=== PATIENT | male | born 1940 | race Caucasian/White ===

== ENCOUNTER 2023-11-27 06:03 | Day surgery (SDC) | payer MEDICARE ==
[2023-11-27] MEDS ORDERED: Lactated Ringers 1,000 ML IV ONE ×2 (06:23→11:19)
[2023-11-27] MEDS: Lactated Ringers 1,000 ML IV SCH (06:26)
[2023-11-27] MEDS ORDERED: TYLENOL EXTRA STRENGTH 500 MG ONE (07:04)
[2023-11-27] MEDS ORDERED: Decadron 4 MG ONE ×2 (07:04→07:09)
[2023-11-27] MEDS ORDERED: TRANEXAMIC 1,000 MG/100ML-NACL 1,000 MG/100 ML PIGGYBACK IV ONE (07:04)
[2023-11-27] MEDS ORDERED: celeBREX 100 MG ONE (07:05)
[2023-11-27] MEDS: celeBREX 100 MG PO ONE (07:08)
[2023-11-27] MEDS: Decadron 4 MG PO ONE (07:08)
[2023-11-27] MEDS: VANCOMYCIN 1 GRAM/200 ML BAG 1 GM/200 ML PIGGYBACK IV SCH (07:10)
[2023-11-27] MEDS: TYLENOL EXTRA STRENGTH 500 MG PO ONE (07:11)
[2023-11-27] MEDS: TRANEXAMIC 1,000 MG/100ML-NACL 1,000 MG/100 ML PIGGYBACK IV SCH (07:18)
[2023-11-27 07:32] LABS: ABO TYPING O; Antibody Screen NEGATIVE (NEGATIVE); RH TYPING POSITIVE
[2023-11-27] MEDS ORDERED: Versed 2 MG/2 ML Injection ONE (08:00)
[2023-11-27] MEDS ORDERED: Xylocaine-Mpf 2% 5 Ml Vial ONE ×3 (08:00→08:39)
[2023-11-27] MEDS ORDERED: Marcaine 0.5%/Epinephrine 10 ML ONE (08:00)
[2023-11-27] MEDS ORDERED: ROCURONIUM BROMIDE IV ONE ×2 (08:38→08:39)
[2023-11-27] MEDS ORDERED: DIPRIVAN 200 MG/20 ML IV ONE (08:38)
[2023-11-27] MEDS ORDERED: SUBLIMAZE 100 MCG/2 ML ONE (08:38)
[2023-11-27] MEDS ORDERED: XYLOCAINE 1%/Epi 1:100000 MDV 20 ML ONE (08:39)
[2023-11-27] MEDS ORDERED: Amidate 20 MG/10 ML IV ONE (08:41)
[2023-11-27] MEDS ORDERED: PEROXIDE 3% ONE (08:41)
[2023-11-27] MEDS ORDERED: Zofran 4 MG/2 ML VIAL ONE (09:08)
[2023-11-27] MEDS ORDERED: TORAdol 30 mg Injection ONE (09:08)
[2023-11-27] MEDS ORDERED: BRIDION 200MG/2ML IV ONE (09:08)
[2023-11-27] MEDS ORDERED: Decadron 4 MG INJ ONE (09:08)
[2023-11-27] MEDS ORDERED: Ephedrine Sulfate 50 MG/ML ONE (10:04)
--- NOTE | 2023-11-27 12:22 | XRAY ---
Indication: Follow-up surgery. Comparison: August 20, 2023 AP and attempted scapular Y view right shoulder demonstrates interval arthroplasty with intact bipolar prosthesis/glenoid process screws. Soft tissue swelling/emphysema with cutaneous elmo attest to surgery. Elsewhere stable osteopenia, AC degenerative arthropathy, and multilevel degenerative spondylosis.
[2023-11-27 12:47] VITALS: O2SAT 96
[2023-11-27 16:02] VITALS: BP 151/65; PULSE 67; RESP 19; TEMP 97.9
--- NOTE | 2023-11-27 23:29 | OP ---
SURGERY DATE/TIME: 11/27/2023 2708 - [id number] PREOPERATIVE DIAGNOSIS: Right shoulder degenerative joint disease. POSTOPERATIVE DIAGNOSIS: Right shoulder degenerative joint disease. PROCEDURE: Right reverse shoulder arthroplasty. SURGEON: Sam Patel MD PHOTO EDITOR: Haily Black ANESTHESIA: General plus interscalene block. FINDINGS: Severe glenohumeral DJD with flattened humeral head. Rotator cuff was mainly intact. Biceps tendon was intact. INDICATION FOR PROCEDURE: The patient is an 83-year-old white male with painful right shoulder he wished to have replaced for pain relief. DESCRIPTION OF PROCEDURE AND FINDINGS: The patient was seen in the holding room. We identified the right shoulder as correct. This was initialed by me. He was taken to the OR where he had general anesthesia and interscalene block. He had 1000 mg vancomycin due to an allergy to cephalexin. He also had 1000 mg tranexamic acid IV. He was set up in the beach chair position at a 45-degree angle with a right-sided kidney rest. His left arm was on a padded stand. He had a wide strap keeping pressure off his supraorbital nerve. He had eye protection on. He had a wedge behind his calves keeping pressure off his heels. He had sterile prep and draping of the right upper extremity. Time out was performed by me. He had the incision pre-injected with 10 mL of 0.25% Marcaine with epinephrine using a deltopectoral skin incision. The incision was made approximately 10 cm in length. The cephalic vein was identified and retracted medially. A blunt dissection was done deep to the deltoid and then a large humeral head retractor was placed. The subscapularis was released off the insertion with a Bovie and the biceps tendon was identified, cut and tagged with #2 MaxBraid suture. The humerus was externally rotated while releasing the capsule off the inferior neck, avoiding the axillary nerve. The shoulder was dislocated anteriorly and then the starting point was found in the superior head just off the articular surface. The starting awl for the Rosendo comprehensive reverse shoulder was used. The starting awl went down the canal and then successful reaming was done in 1-mm increments to size 13. The cutting guide then was slid over the shaft of the reamer in 30 degrees of retroversion guided off the forearm with the guide rogelio. The neck cut was made at the articular junction with a saw and then the head was removed. Osteophytes were removed. The broaching was then done starting at a size 11, going up to a size 13 with good fit. The broach was removed. The retractors were placed around the glenoid at the 9 o'clock, 6 o'clock and 3 o'clock positions. The biceps stump was removed as was the labrum circumferentially. The center of the glenoid was marked with a Bovie going slightly superior due to inferior osteophytes seen on the CT scan. The guide pin was drilled with the baseplate guide with the pins at a superior angle and slight anteversion due to the posterior glenoid wear. The reaming was then done on top of this guide pin with the Desktone reamer, taking off about a depth of 4 mm of bone anteriorly. The irrigation was done and then the baseplate was slid over the guide pin and impacted. It was then anchored with a central screw. After drilling, the center screw was 6.5 x 30 mm. Four screws were then placed peripherally, all being 4.75 mm locking screws with 2 anterior and superior screws being 35 mm, the posterior screw being 25 and the anterior screw being 15. The shoulder was irrigated again and the Glenosphere was locked on with the 2.5mm inferior offset and verified to be locked securely with an osteotome. The trial 0 tray was put on with a 0 cut. This was reducible with good tension and good range of motion and stability. The broach was then removed. Canal thoroughly irrigated with pulse lavage and the 13 mini shoulder prosthesis was impacted being about 2 mm proud. The trial reduction was done again with the 0 baseplate and tray being appropriate. Therefore, the tray was assembled and placed into a clean trunnion and impacted with a good secure fit. This was reduced with the same range of motion and good stability as before. The shoulder was irrigated. It should be mentioned also that the Glenosphere size was 36 mm, and this had been impacted after putting on the baseplate. The shoulder was thoroughly irrigated. The biceps was tenodesed to the soft tissue anteriorly with the suture and then the subcutaneous tissue was closed with 2-0 Vicryl, the skin with elmo. Sterile dressing was applied and patient was placed in a sling with slight abduction pad. ESTIMATED BLOOD LOSS: 75 mL. FLUIDS: Per the Anesthesia record. SPECIMENS: None. DRAINS: None. COMPLICATIONS: None. Plan is for patient to do gentle active and passive range of motion. Avoid extreme internal rotation. He will be discharged home today if comfortable. If so, he will go home on Percocet 5 mg 1 q.4 h. p.r.n., dispense #28. He will be seen back in 8 to 10 days for staple removal. He will remove the dressing in 5 days and shower then. He will start physical therapy outpatient next week as this week is a holiday.
== END 2023-11-27 16:05 | disposition home or self-care (01) ==
LOC: SDC 06:03 → MED SURG 12:35 → SDC 16:05
PROVIDERS: ATTEND Orthopaedic Surgery
DX: M19.011 Primary osteoarthritis, right shoulder (principal); M25.511 Pain in right shoulder; E11.9 Type 2 diabetes mellitus without complications
CPT/HCPCS: 23472; 36415; 73030; 82947; 86850; 86900; 86901; 97161; 97165; 97530; C1713; C1776; J1100; J1885; J2250; J2405; J2704; J3010; A9270-GY; J3370

== ENCOUNTER 2023-11-28 12:22 | Emergency (ER) | payer MEDICARE ==
[2023-11-28 12:48] VITALS: PULSE 62; TEMP 98.6
--- NOTE | 2023-11-28 13:48 | ERPHSYRPT ---
- History of Present Illness Time Seen by Provider: 11/28/23 12:36 Source: patient, family Exam Limitations: no limitations Patient Subjective Stated Complaint: Pt had a right shoulder replacement done here at [facility] yesterday and he was placing ice on it during the night and he states that it "cracked" "pop" and it hurts Triage Nursing Assessment: Pt brought to the ER by his , hypertensive, rates pain as 8/10, incision is covered with a bandage with silver, bruising to the underpart and lower arm, bounding pulse in right arm, rest of skin is n/w/d, doesn't appear to be in any distress Physician History: 83-year-old male with right shoulder replacement postop day [address] Patel here at [facility] presented in the ER with complaint of increase in the pain and bruising/swelling of arm started after he was putting ice and felt a popping sensation. Patient reports tightness in the arm with bruising. No numbness or tingling in the fingers/wrist/forearm. No difficulty movements of the fingers. Denies any fall or trauma. Patient has taken only 2 Oxy since yesterday. Allergies/Adverse Reactions: morphine Allergy (Unknown, Verified 11/28/23 12:49) amoxicillin Allergy (Verified 11/28/23 12:49) Rash adhesive tape Adverse Reaction (Unknown, Verified 11/28/23 12:49) Home Medications: Ezetimibe 10 mg [Zetia 10 MG] 10 mg PO DAILY 09/17/23 [History] Finasteride 5 mg [Proscar 5 MG] 5 mg PO DAILY 09/17/23 [History] Glipizide [Glipizide ER] 5 mg PO BID 09/17/23 [History] Lisinopril 5 mg [Zestril 5 MG] 5 mg PO DAILY 09/17/23 [History] Pravastatin Sodium 40 mg PO DAILY 09/17/23 [History] Tamsulosin HCl 0.4 mg [Flomax 0.4 MG] 1 tab PO DAILY 09/17/23 [History] Esomeprazole Magnesium 40 mg PO DAILY 11/28/23 [History] Hx Influenza Vaccination/Date Given: Yes Hx Pneumococcal Vaccination/Date Given: Yes Travel Risk - International Travel Have you traveled outside of the country in past 3 weeks: No - Emerging Infectious Disease Are you exhibiting symptoms associated with any current EIDs: No - Review of Systems Constitutional: No Symptoms Ears, Nose, & Throat: No Symptoms Respiratory: No Symptoms Cardiac: No Symptoms Abdominal/Gastrointestinal: No Symptoms Musculoskeletal: Joint Pain, Joint Swelling Skin: No Symptoms Neurological: No Symptoms - Past Medical History Pertinent Past Medical History: Yes Neurological History: No Pertinent History ENT History: Cataracts Cardiac History: High Cholesterol, Hypertension Respiratory History: No Pertinent History Endocrine Medical History: Diabetes Type II Musculoskeletal History: Arthritis GI Medical History: No Pertinent History History: No Pertinent History Male Reproductive Disorders: Prostate Problems Other Medical History: PSH: APPENDIX AND GALLBLADDER REMOVED, CERVICAL FUSION (POOR EXPERIENCE WITH CERVICAL NECK MANIPULATION WITH A CHIROPRACTOR). - Past Surgical History Past Surgical History: Yes Neuro Surgical History: No Pertinent History Cardiac: No Pertinent History Respiratory: No Pertinent History Gastrointestinal: Appendectomy, Cholecystectomy Genitourinary: No Pertinent History Musculoskeletal: Joint Replacement, Other Male Surgical History: No Pertinent History Other Surgical History: right shoulder replacement - Social History Smoking Status: Former smoker How long have you smoked: 18 years Exposure to second hand smoke: No Drug Use: none - Social Determinants of Health Will the patient participate in the screening: Yes Do you worry about a steady place to live?: No Do you have any problems with any of the following?: No known problems In the past 12 months,have you had to go without utilities?: No Transportation Issues: No Has anyone in your support network made you feel unsafe?: No Have you or anyone in your house had to go without enough: No - Nursing Vital Signs Nursing Vital Signs: Initial Vital Signs Temperature 98.6 F 11/28/23 12:35 Pulse Rate 62 11/28/23 12:35 Blood Pressure 140/68 11/28/23 12:35 O2 Sat by Pulse Oximetry 100 11/28/23 12:35 Pain Scale Pain Intensity 8 - Physical Exam General Appearance: no apparent distress, alert Eyes, Ears, Nose, Throat Exam: normal ENT inspection Neck Exam: normal inspection, full range of motion Cardiovascular/Respiratory Exam: normal breath sounds, regular rate/rhythm Abdominal Exam: non-tender, soft Shoulder Exam: bone tenderness, ecchymosis, limited ROM (Diffuse tenderness of right shoulder with dressing well applied. Bruising/ecchymosis along the medial aspect of joint/axillae/arm. Mild tenderness. Distal neurovascular intact), pain, soft tissue tenderness, swelling Elbow/Forearm Exam: normal inspection, non-tender, no evidence of injury, normal ROM Wrist Exam: normal inspection, non-tender, no evidence of injury, normal ROM Hand Exam: normal inspection, non-tender, no evidence of injury, normal ROM Neuro/Tendon Exam: normal sensation, normal motor functions Mental Status Exam: alert, oriented x 3, cooperative Skin Exam: normal color SpO2 Interpretation: normal SpO2: 100 O2 Delivery: Room Air Ordered Tests: Active Orders 24 hr Category Date Time Status SHOULDER Stat Exams 11/28/23 12:56 Taken - Progress Progress Note: 11/28/23 13:49 83-year-old is evaluated in the ER for increasing shoulder pain and swelling after replacement yesterday with feeling of a popping sensation in the shoulder. Patient has intact distal neurovascular. Compartments are soft. No signs of compartment syndrome. Obtain x-rays which showed small tubercular fracture on x-rays reviewed by me, official report is pending. I have shared the x-rays with Dr. Patel who has also seen and recommended surgical fixation. Discussed with patient about observation admission versus going home, patient is not in excessive pain and given oral Percocet in here and does have pain medications at home. He is advised to keep n.p.o. after midnight and surgery will be scheduled in the morning. Discussed signs symptoms of worsening needing return to ER which patient/ seem understanding. Stable for discharge. Counseled pt/family regarding: diagnosis, need for follow-up, rad results Medical Desision Making - Discussion of managment Care discussed with:: specialist ([facility]) Reviewed:: Test results Agreed on:: Treatment plan, need for follow-up Will see patient: in hospital - Diagnostic Testing Diagnostic test were ordered, analyzed, and reviewed by me: Yes Radiological Interpretation: Interpreted by me, Reviewed by me - Risk of complications The pt has a mod risk of morbidity or mortality based on: Need for major surgery in otherwise healthy patient - Departure Departure Disposition: Home Clinical Impression: Shoulder fracture, right Condition: Stable Critical Care Time: No Referrals: DENNIS MILNER [Primary Care Provider] - Follow up with PCP 1 day Instructions: Shoulder Fracture (DC) Additional Instructions: Follow-up with orthopedic surgery for reevaluation and surgical fixation tomorrow morning as recommended. Do not eat or drink anything after midnight. Return to ER for intractable pain, swelling, difficulty movements at the wrist fingers, numbness or tingling/weakness in the fingers. Continue with intermittent ice application and pain medications which you have at home.
[2023-11-28] MEDS: PERCOCET TABLET 5/325MG PO ONE (13:58)
[2023-11-28] MEDS ORDERED: PERCOCET TABLET 5/325MG ONE (13:58)
[2023-11-28 14:02] VITALS: BP 143/64; O2SAT 97
--- NOTE | 2023-11-28 19:11 | XRAY ---
Indication: Pain. Comparison: One day earlier. 3 view right shoulder demonstrates grossly stable bipolar shoulder prosthesis/glenoid process screws and postsurgical soft tissue swelling/emphysema with cutaneous elmo. Elsewhere stable osteopenia, AC degenerative changes, and multilevel cervicothoracic degenerative spondylosis. No new bony, articular, or soft tissue abnormalities.
== END 2023-11-28 14:07 | disposition home or self-care (01) ==
LOC: ED 12:22
DX: S42.251A Displaced fracture of greater tuberosity of right humerus, initial encounter for closed fracture (principal); M97.31XA Periprosthetic fracture around internal prosthetic right shoulder joint, initial encounter; E78.5 Hyperlipidemia, unspecified; I10 Essential (primary) hypertension; E11.9 Type 2 diabetes mellitus without complications; Z79.891 Long term (current) use of opiate analgesic; Z79.84 Long term (current) use of oral hypoglycemic drugs; Z79.899 Other long term (current) drug therapy
CPT/HCPCS: 73030; 99283; A9270-GY

== ENCOUNTER 2023-11-29 07:49 | Day surgery (SDC) | payer MEDICARE ==
[2023-11-29] MEDS ORDERED: MARCAINE 0.25% PF/ EPI 1:200,000 IJ ONE (07:50)
--- NOTE | 2023-11-29 08:24 | PCM.HP ---
History of Present Illness - Chief Complaint Chief Complaint: Right shoulder pain status post RSA Date: 11/29/23 History of Present Illness: is a 83 year old maleHe underwent a right reverse shoulder arthroplasty by me on November 27, 2023. He was at home yesterday when he felt a pop. He came back to emergency room and was found to have a mildly displaced greater tuberosity fracture around his reverse shoulder prosthesisPatient's pain is moderate to severe now. Has some numbness.He does have constipation but is taking DulcolaxPatient has no chest pain shortness of breath fevers or chills.. Medications & Allergies Home Medications: Home Medication List Ezetimibe 10 mg [Zetia 10 MG] 10 mg PO DAILY 09/17/23 [History Confirmed 11/28/23] Finasteride 5 mg [Proscar 5 MG] 5 mg PO DAILY 09/17/23 [History Confirmed 11/28/23] Glipizide [Glipizide ER] 5 mg PO BID 09/17/23 [History Confirmed 11/28/23] Lisinopril 5 mg [Zestril 5 MG] 5 mg PO DAILY 09/17/23 [History Confirmed 11/28/23] Pravastatin Sodium 40 mg PO DAILY 09/17/23 [History Confirmed 11/28/23] Tamsulosin HCl 0.4 mg [Flomax 0.4 MG] 1 tab PO DAILY 09/17/23 [History Confirmed 11/28/23] Doxycycline Hyclate 100 mg [Vibramycin 100 MG] 100 mg PO BID 3 Days #6 tab 11/27/23 [Rx Confirmed 11/28/23] Oxycodone HCl/Acetaminophen [Percocet 5-325 mg Tablet] 1 each PO Q4H PRN PRN 7 Days #28 tablet MDD 6 11/27/23 [Rx Confirmed 11/28/23] Esomeprazole Magnesium 40 mg PO DAILY 11/28/23 [History Confirmed 11/28/23] Allergies/Adverse Reactions: Allergies Allergy/AdvReac Type Severity Reaction Status Date / Time morphine Allergy Unknown Verified 11/28/23 12:49 amoxicillin Allergy Rash Verified 11/28/23 12:49 adhesive tape AdvReac Unknown Verified 11/28/23 12:49 - Past Medical History Past Medical History: Yes Neurological History: No Pertinent History ENT History: Cataracts Cardiac History: High Cholesterol, Hypertension Respiratory History: No Pertinent History Endocrine Medical History: Diabetes Type II Musculoskelatal History: Arthritis GI Medical History: No Pertinent History History: No Pertinent History Male Reproductive Disorders: Prostate Problems Comment: PSH: APPENDIX AND GALLBLADDER REMOVED, CERVICAL FUSION (POOR EXPERIENCE WITH CERVICAL NECK MANIPULATION WITH A CHIROPRACTOR). - Past Surgical History Past Surgical History: Yes Neuro Surgical History: No Pertinent History Cardiac History: No Pertinent History Respiratory Surgery: No Pertinent History GI Surgical History: Appendectomy, Cholecystectomy Genitourinary Surgical Hx: No Pertinent History Musculskeletal Surgical Hx: Joint Replacement, Other Male Surgical History: No Pertinent History Other Surgical History: right shoulder replacement - Social History Smoking Status: Former smoker How long have you smoked: 18 years Exposure to second hand smoke: No Alcohol: None Drug Use: none - Social Determinants of Health Will the patient participate in the screening: Yes Do you worry about a steady place to live?: No In the past 12 months,have you had to go without utilities?: No Have you or anyone in your house had to go without enough: No Transportation Issues: No Has anyone in your support network made you feel unsafe?: No - Physical Exam Additional Findings: 11/29/23 08:21 Pleasant male, no pain distress, alert and orient x 3 normal height and weight Heart regular rate rhythm Abdomen soft nontender positive bowel sounds Lungs clear bilaterally Right shoulder dressing still intact. Moving fingers well with 5/5 radial median and ulnar nerve function. Good sensation radial median ulnar nerve distribution. 2+ radial pulse X-rays of right shoulder from yesterday showed intactReverse shoulder arthroplasty with a 5 mm superiorly displaced greater tuberosity fractureWith osteoporotic appearance to the greater tuberosity Results - Radiology Impressions Radiology Exams & Impressions: Radiology Procedures Category Date Time Status FLUOROSCOPY UP TO 1 HR Routine Exams 11/29/23 07:50 Ordered SHOULDER Routine Exams 11/29/23 07:50 Ordered Assessment/Plan (1) Fracture of greater tuberosity of right humerus Current Visit: Yes Status: Acute Assessment & Plan: Explained to patient that this should be fixed to restore his rotator cuff function.Movable of the prosthesis then replacement of it.He understands the risk. Patient understands the risk include bleeding, infection, damage to nerves or blood vessels, nonunion, malunion, possible need for further surgery and the risk of medical or anesthetic complications including the risk of . Patient wishes to proceed with surgery.Will try to do this with general and nerve block and sent home today if possible .Patient will use enemas and stool softener and MiraLAX powder and the Dulcolax to try to get his bowel movement Code(s): S42.251A - DISP FX OF GREATER TUBEROSITY OF RIGHT HUMERUS, INIT
[2023-11-29] MEDS ORDERED: celeBREX 100 MG PO ONE (09:22)
[2023-11-29] MEDS ORDERED: Xylocaine-Mpf 2% 5 Ml Vial ONE (09:25)
[2023-11-29] MEDS ORDERED: Marcaine 0.5%/Epinephrine 10 ML ONE (09:25)
[2023-11-29] MEDS ORDERED: Zofran 4 MG/2 ML VIAL ONE (09:29)
[2023-11-29] MEDS ORDERED: BRIDION 200MG/2ML IV ONE (09:29)
[2023-11-29] MEDS ORDERED: SUBLIMAZE 100 MCG/2 ML ONE (09:29)
[2023-11-29] MEDS ORDERED: Versed 2 MG/2 ML Injection ONE (09:29)
[2023-11-29] MEDS ORDERED: DIPRIVAN 200 MG/20 ML IV ONE (09:29)
[2023-11-29] MEDS ORDERED: ROCURONIUM BROMIDE IV ONE (09:29)
[2023-11-29] MEDS: NEURONTIN PO ONE (09:32)
[2023-11-29] MEDS: Decadron 4 MG PO ONE (09:33)
[2023-11-29] MEDS: TYLENOL EXTRA STRENGTH 500 MG PO ONE (09:35)
[2023-11-29] MEDS: Lactated Ringers 1,000 ML IV SCH (09:36)
[2023-11-29] MEDS: VANCOMYCIN 1 GRAM/200 ML BAG 1 GM/200 ML PIGGYBACK IV ONE (09:37)
[2023-11-29 09:52] VITALS: RESP 16
[2023-11-29] MEDS ORDERED: Sodium Chloride 0.9% 1000 ML 1,000 ML ONE (10:02)
[2023-11-29] MEDS ORDERED: PHENYLEPHRINE HCL ONE (10:58)
[2023-11-29] MEDS ORDERED: Lactated Ringers 1,000 ML IV ONE (11:35)
[2023-11-29 12:37] VITALS: TEMP 98.9
[2023-11-29 12:55] VITALS: BP 138/67; PULSE 62; O2SAT 94
--- NOTE | 2023-12-01 11:42 | OP ---
SURGERY DATE/TIME: 11/29/2023 7886 - [id number] DIAGNOSIS: Right greater tuberosity fracture with reverse shoulder prosthesis. PROCEDURE: Open reduction and internal fixation right greater tuberosity fracture. SURGEON: Sam Patel MD. ANESTHESIA: General with interscalene block by Pollo. FINDINGS: A displaced greater tuberosity fracture with about a 1 cm superior posterior displacement. ESTIMATED BLOOD LOSS: Zero. FLUIDS: Per the anesthesia record. SPECIMENS: None. DRAINS: None. COMPLICATIONS: None. INDICATIONS: Patient is an 83-year-old white male who had a right reverse shoulder prosthesis by me for arthritis done 2 days ago. Postop day 1, he felt a pop in his shoulder and came to the emergency room with x-rays showing a greater tuberosity fracture. It was felt this should be fixed to restore rotator cuff function. DESCRIPTION OF PROCEDURE AND FINDINGS: Patient was seen in the holding room. We identified the right shoulder as correct. This was initialed by me. He had 1000 mg of vancomycin preoperative. He was taken to the OR where he had general anesthesia. He had already had the nerve block done. He was positioned in the beach chair at about a 30-degree angle and elevated his left arm across his belly. His calves were protected with a wedge pillow and pillows under his heels. He had a kidney rest on the right side. Had sterile prepping and draping of his right upper extremity. This had been prepped with hydrogen peroxide and with Hibiclens. Anitra were removed and the wound was painted with Betadine. The time-out was performed. The wound was spread apart with hemostats and the sutures were cut. The shoulder was still reduced. The prosthesis was dislocated and then the cup was removed from the stem. The stem was then disimpacted. The canal and wound were thoroughly irrigated with diluted Betadine solution with pulsed lavage using 1 liter, then irrigating this out with another liter of saline. The greater tuberosity was tagged with a MaxBraid suture to help with retraction. The 2 drill holes were drilled with 2 mm drill, one directly in line with the greater tuberosity and one in the bicipital groove. Then, 2.3 mm FiberTapes from [employer] were then passed through this in a mattress-type fashion through the anterior hole and out the posterior hole, placing [address] and then placing 1 tape through the anterior hole only. The prosthesis then re-impacted with good stability. No fracture seen. The cup was re-impacted onto the stem and the shoulder was reduced. The posterior suture was tied first, compressing the greater tuberosity down to the bony bed. This was tied, and the middle suture was tied, then the anterior suture was tied to prevent posterior translation. This shoulder appeared stable. It should be mentioned that the first suture had been placed through the bone and rotator cuff, the second one was placed in a [id number] fashion through the cuff, and the third suture had been placed in a [id number] fashion through the rotator cuff and bone. The shoulder was felt to be stable. Wound was irrigated again with pulsed saline and then the subcutaneous tissue was closed with 2-0 Vicryl and the skin with anitra. Sterile dressings were applied. Patient was placed back in a sling. The plan is for the patient to do pendulum exercises. He will keep the wound dry for 5 days and then may shower. We will see him back in about 10 to 12 days for staple removal and then I will see him back when I am back here in 3 weeks. He already has pain medicine. He will take stool softeners that he has at home and he will take Doxycycline, which I will send in for him for 3 days.
== END 2023-11-29 13:22 | disposition home or self-care (01) ==
LOC: SDC 07:49 → LAB 07:49 → SDC 13:22
PROVIDERS: ATTEND Orthopaedic Surgery
DX: S42.251A Displaced fracture of greater tuberosity of right humerus, initial encounter for closed fracture (principal); E11.9 Type 2 diabetes mellitus without complications
CPT/HCPCS: 23670; 76937; 82947; C1713; J2250; J2371; J2405; J2704; J3010; A9270-GY; J3370

== ENCOUNTER 2023-12-01 11:16 | Emergency (ER) | payer MEDICARE ==
[2023-12-01] MEDS ORDERED: CITROMA 296 ML ONE (11:31)
[2023-12-01] MEDS: CITROMA 296 ML PO ONE (11:32)
--- NOTE | 2023-12-01 11:37 | ERPHSYRPT ---
- History of Present Illness Time Seen by Provider: 12/01/23 11:32 Source: patient, family Exam Limitations: no limitations Patient Subjective Stated Complaint: Pt states "I have swelling in my lower arm and I have not had a bowel movement since saturday." Triage Nursing Assessment: Pt presented alert and oriented X 3, skin wpd. PT ambulates with an upright steady gait, able to speak in clear full sentences. Pt right lower arm swollen, good pulse noted, CSM noted. PT had full shoulder replaced and arm is in sling. Pt also constipated Physician History: Pt states "I have swelling in my lower arm and I have not had a bowel movement since saturday." Mr Jiménez is 83-year-old male recently underwent surgery for right shoulder repair last Saturday since Saturday he started having a more swelling around his right arm and shoulder and started having more pain so he called orthopedic surgeon who advised him to come to the emergency room to get it checked out for x-ray. Patient is also complaining of constipation due to the pain medication he has been taking. Patient denies any other symptoms. Occurred: yesterday Severity of Pain-Max: mild Severity of Pain-Current: moderate Extremities Pain Location: shoulder: right Modifying Factors: Improves With: nothing Associated Symptoms: none Allergies/Adverse Reactions: morphine Allergy (Unknown, Verified 11/28/23 12:49) amoxicillin Allergy (Verified 11/28/23 12:49) Rash adhesive tape Adverse Reaction (Unknown, Verified 11/28/23 12:49) Home Medications: Ezetimibe 10 mg [Zetia 10 MG] 10 mg PO DAILY 09/17/23 [History] Finasteride 5 mg [Proscar 5 MG] 5 mg PO DAILY 09/17/23 [History] Glipizide [Glipizide ER] 5 mg PO BID 09/17/23 [History] Lisinopril 5 mg [Zestril 5 MG] 5 mg PO DAILY 09/17/23 [History] Pravastatin Sodium 40 mg PO DAILY 09/17/23 [History] Tamsulosin HCl 0.4 mg [Flomax 0.4 MG] 1 tab PO DAILY 09/17/23 [History] Esomeprazole Magnesium 40 mg PO DAILY 11/28/23 [History] Hx Tetanus, Diphtheria Vaccination/Date Given: No Hx Influenza Vaccination/Date Given: No Hx Pneumococcal Vaccination/Date Given: No Immunizations Up to Date: No Travel Risk - International Travel Have you traveled outside of the country in past 3 weeks: No - Emerging Infectious Disease Are you exhibiting symptoms associated with any current EIDs: No - Review of Systems Constitutional: No Symptoms Eyes: No Symptoms Ears, Nose, & Throat: No Symptoms Respiratory: No Symptoms Cardiac: No Symptoms Abdominal/Gastrointestinal: Constipation Genitourinary Symptoms: No Symptoms Musculoskeletal: Joint Pain, Joint Swelling (right shoulder) Skin: No Symptoms Neurological: No Symptoms Endocrine: No Symptoms Hematologic/Lymphatic: No Symptoms Immunological/Allergic: No Symptoms - Past Medical History Pertinent Past Medical History: Yes Neurological History: No Pertinent History ENT History: Cataracts Cardiac History: High Cholesterol, Hypertension Respiratory History: No Pertinent History Endocrine Medical History: Diabetes Type II Musculoskeletal History: Arthritis GI Medical History: No Pertinent History History: No Pertinent History Male Reproductive Disorders: Prostate Problems Other Medical History: PSH: APPENDIX AND GALLBLADDER REMOVED, CERVICAL FUSION (POOR EXPERIENCE WITH CERVICAL NECK MANIPULATION WITH A CHIROPRACTOR). - Past Surgical History Past Surgical History: Yes Neuro Surgical History: No Pertinent History Cardiac: No Pertinent History Respiratory: No Pertinent History Gastrointestinal: Appendectomy, Cholecystectomy Genitourinary: No Pertinent History Musculoskeletal: Joint Replacement, Other Male Surgical History: No Pertinent History Other Surgical History: right shoulder replacement - Social History Smoking Status: Former smoker How long have you smoked: 18 years Exposure to second hand smoke: No Drug Use: none - Social Determinants of Health Will the patient participate in the screening: Yes Do you worry about a steady place to live?: No Do you have any problems with any of the following?: No known problems In the past 12 months,have you had to go without utilities?: No Transportation Issues: No Has anyone in your support network made you feel unsafe?: No Have you or anyone in your house had to go without enough: No - Nursing Vital Signs Nursing Vital Signs: Initial Vital Signs Temperature 97.8 F 12/01/23 11:21 Pulse Rate 68 12/01/23 11:21 Respiratory Rate 20 12/01/23 11:21 Blood Pressure 176/87 12/01/23 11:21 O2 Sat by Pulse Oximetry 99 12/01/23 11:21 Pain Scale Pain Intensity 0 - Physical Exam General Appearance: no apparent distress Eyes, Ears, Nose, Throat Exam: normal ENT inspection Neck Exam: normal inspection Cardiovascular/Respiratory Exam: chest non-tender Abdominal Exam: non-tender Back Exam: normal inspection Shoulder Exam: ecchymosis, limited ROM, soft tissue tenderness Elbow/Forearm Exam: normal inspection Wrist Exam: normal inspection Hand Exam: normal inspection Neuro/Tendon Exam: normal sensation Mental Status Exam: alert, oriented x 3 Skin Exam: normal color SpO2 Interpretation: normal SpO2: 99 O2 Delivery: Room Air - Course Nursing assessment & vital signs reviewed: Yes - Radiology Exams Shoulder X-ray Interpretation: Interpreted by me, Reviewed by me, Nml Alignment Ordered Tests: Active Orders 24 hr Category Date Time Status SHOULDER Stat Exams 12/01/23 11:28 Ordered Medication Summary Discontinued Medications Generic Name Dose Route Start Last Admin Trade Name Freq PRN Reason Stop Dose Admin Magnesium Citrate 296 ml 12/01/23 11:30 12/01/23 11:32 Magnesium Citrate 296 Ml Solution PO 12/01/23 11:31 296 ml 1XONLY ONE Administration Magnesium Citrate Confirm 12/01/23 11:31 Magnesium Citrate 296 Ml Solution Administered 12/01/23 11:32 Dose 296 ml .ROUTE .STK-MED ONE - Progress Progress: improved, pain not gone completely Counseled pt/family regarding: diagnosis, need for follow-up, rad results Medical Desision Making - Independent Historian Additional History obtained from: Spouse - Diagnostic Testing Diagnostic test were ordered, analyzed, and reviewed by me: Yes Radiological Interpretation: Interpreted by me - Departure Departure Disposition: Home Clinical Impression: Constipation due to opioid therapy Contusion of right shoulder Qualifiers: Encounter type: initial encounter Qualified Code(s): S40.011A - Contusion of right shoulder, initial encounter Condition: Stable Critical Care Time: No Referrals: DENNIS MILNER [Primary Care Provider] - [facility] M-F [id number] Instructions: Frozen Shoulder, Arthroscopic Surgery Additional Instructions: Discharge/Care Plan LILLY JIMNÉEZ was seen on 12/01/23 in the Emergency Room. The patient was counseled regarding Diagnosis,Lab results, Imaging studies, need for follow up and when to return to the Emergency Room. Prescriptions given: Discharge Note I have spoken with the patient and/or caregivers. I have explained the patient's condition, diagnosis and treatment plan based on the information available to me at this time. I have answered the patient's and/or caregiver's questions and addressed any concerns. The patient and/or caregivers have as good understanding of the patient's diagnosis, condition and treatment plan as can be expected at this point. The vital signs have been stable. The patient's condition is stable and appropriate for discharge from the emergency department. The patient will pursue further outpatient evaluation with the primary care physician or other designated or consulting physician as outlined in the discharge instructions. The patient and/or caregivers are agreeable to this plan of care and follow-up instructions have been explained in detail. The patient and/or caregivers have received these instruction. The patient/and or caregivers are aware that any significant change in condition or worsening of symptoms should prompt an immediate return to this or the closest emergency department or call 911. LILLY JIMÉNEZ was seen on 12/01/23 n the Emergency Room. At that time you were treated for an emergent condition, during your visit Laboratory, Radiology and/or other procedures may have been ordered. It is very important that you follow-up with your Primary Care Physician DENNIS MILNER within the next 24- 48 hours to review your Emergency Room visit and the final results of testing that was ordered. Some test results such as Urine Cultures, Blood Cultures, and other cultures if ordered will not be finalized for 24-48 hours. If you do not have a Primary Care Provider please call the medical records department at [phone] ext [phone] to obtain a copy of your results or you may sign into our patient portal to obtain these results by visiting us @ [email or web address] and completing the following steps: 1. Click on the Patient Portal link 2. Click the Patient Self Enrollment Link to complete the enrollment form and entering your 3. Once the enrollment form is completed you will receive an email with a temporary ID and password at the email address you provided. 4. Next choose a user name and password. Your user name must be at least 4 characters long and your password must be at least 4 characters long. 5. Choose a security question from the list and provide your answer to the question. If you already have signed into the Health Portal you may access your Health Care Information 17/12 by the following steps: 1. Login to our website @ [email or web address] 2. Enter your original user name and password. FAQS The [facility] Portal is an online tool that contains your Lab Results, Radiology Reports, Visit History, Discharge Instructions and Health Summary Lab and Radiology Results will not be available for 72 hours on the portal. The Portal is a secure site, passwords are encryted and URLs are re-written so they cannot be copied and pasted. You and authorized family members are the only ones who can access your Portal. Also there is a timeout feature that protects your information if you leave the Portal page open. If you have technical difficulty please use the Contact Us link on the page this will allow you to submit any questions you have regarding the Portal or you may contact the Medical Record Department at [phone] ext [phone].
[2023-12-01 12:47] VITALS: BP 170/80; PULSE 68; RESP 18; TEMP 97; O2SAT 98
--- NOTE | 2023-12-01 19:41 | XRAY ---
Indication: Pain. Comparison: November 28, 2023 3 view right shoulder limited due to suboptimal positioning. Grossly stable bipolar shoulder prosthesis/glenoid process screws and postsurgical soft tissue swelling/emphysema with cutaneous elmo. Elsewhere stable osteopenia, AC joint degenerative changes, and multilevel degenerative spondylosis. No new abnormalities.
== END 2023-12-01 12:58 | disposition home or self-care (01) ==
LOC: ED 11:16
DX: K59.03 Drug induced constipation (principal); T40.605A Adverse effect of unspecified narcotics, initial encounter; S40.011A Contusion of right shoulder, initial encounter; E78.5 Hyperlipidemia, unspecified; I10 Essential (primary) hypertension; E11.9 Type 2 diabetes mellitus without complications; Z79.84 Long term (current) use of oral hypoglycemic drugs; Z79.891 Long term (current) use of opiate analgesic; Z79.899 Other long term (current) drug therapy
CPT/HCPCS: 73030; 99283; A9270-GY

== ENCOUNTER 2023-12-18 08:16 | Observation (INO) | payer MEDICARE, OTHER ==
[2023-12-18] MEDS ORDERED: Lactated Ringers 1,000 ML IV ONE ×2 (08:38→14:30)
[2023-12-18] MEDS: Lactated Ringers 1,000 ML IV SCH (09:17)
[2023-12-18 09:18] LABS: BASOPHIL % 0.8 % (0.2-1.2); Basophil (Absolute #) 0.06 x10^3/uL (0.01-0.08); Eosinophil % 5.1 % (0.8-7.0); Eosinophil (Absolute #) 0.36 x10^3/uL (0.04-0.54); Hematocrit 34.8 % (40.1-51.0); Hemoglobin 11.7 g/dL (13.7-17.5); IMMATURE GRAN # 0.02 x10^3u/L (0.001-0.031); IMMATURE GRAN % 0.3 % (0.001-0.429); Lymphocyte (Absolute #) 1.78 x10^3/uL (1.32-3.57); Mean Cell Volume 93.3 fL (79.0-92.2); Mean Corpuscular Hemoglobin 31.4 pg (25.7-32.2); Mean Corpuscular Hgb Concent. 33.6 g/dL (32.3-36.5); Mean Platelet Volume 8.6 fL (9.4-12.4); Monocytes % 9.8 % (5.3-12.2); Platelet Count 240 x10^3/uL (163-337); Red Blood Count 3.73 x10^6/uL (4.63-6.08); White Blood Count 7.1 x10^3/uL (4.23-9.07)
[2023-12-18 09:32] LABS: Erythrocyte Sedimentation Rate 18 mm/hr (0-15)
[2023-12-18 09:34] LABS: ANION GAP 11.6 MEQ/L (5-15); Calcium 8.7 mg/dL (8.4-10.2); Creatinine 1 1.34 mg/dL (0.66-1.25); EST GLOMERULAR FILTRATION RATE 51.9 ML/MIN; Potassium 4.1 mmol/L (3.5-5.1)
[2023-12-18] MEDS ORDERED: Sodium Chloride 0.9% 1000 ML 1,000 ML IV ONE (09:51)
[2023-12-18] MEDS ORDERED: VANCOMYCIN 1 GRAM/200 ML BAG 1 GM/200 ML PIGGYBACK IV ONE (09:51)
[2023-12-18] MEDS ORDERED: SUBLIMAZE 100 MCG/2 ML ONE (12:10)
[2023-12-18] MEDS ORDERED: Versed 2 MG/2 ML Injection ONE (12:10)
[2023-12-18] MEDS ORDERED: Amidate 20 MG/10 ML IV ONE (12:41)
[2023-12-18] MEDS ORDERED: PHENYLEPHRINE HCL ONE (12:41)
[2023-12-18] MEDS ORDERED: ROCURONIUM BROMIDE IV ONE (12:41)
[2023-12-18] MEDS ORDERED: BRIDION 200MG/2ML IV ONE (13:12)
--- NOTE | 2023-12-18 14:47 | XRAY ---
Indication: Follow-up surgery. Comparison: December 09, 2023 Single AP right shoulder demonstrates new percutaneous catheter with tip obscured due to prosthesis. Remaining shoulder grossly unchanged again with intact bipolar shoulder prosthesis/glenoid process screws, cutaneous elmo, osteopenia, AC degenerative changes, and multilevel degenerative spondylosis.
--- NOTE | 2023-12-18 15:26 | PCM.HP ---
History of Present Illness - Chief Complaint Chief Complaint: right shoulder drainage Date: 12/18/23 History of Present Illness: is a 83 year old male with a pmhx of DM, HLD,and CKD patient of Dr. Hays (Ortho) admitted 12/18/23 s/p I&D of right shoulder. 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 Hospitalist team has been consulted for medical management. Patient does report aching pain to the right shoulder at the incision site with a numerical rating of 3/10. No other complaints at this time. Denies fever,cough, sob, cp, abdominal pain, FRITZ, dizziness, N/V/D. - Review of Systems Constitutional: No Symptoms Eyes: No Symptoms Ears, Nose, & Throat: No Symptoms Respiratory: No Symptoms Cardiac: No Symptoms Abdominal/Gastrointestinal: No Symptoms Genitourinary Symptoms: No Symptoms Musculoskeletal: Joint Pain (right shoulder) Skin: No Symptoms Neurological: No Symptoms Psychological: No Symptoms Endocrine: No Symptoms Hematologic/Lymphatic: No Symptoms Immunological/Allergic: No Symptoms Medications & Allergies Home Medications: Home Medication List Ezetimibe 10 mg [Zetia 10 MG] 10 mg PO DAILY 09/17/23 [History Confirmed 12/18/23] Finasteride 5 mg [Proscar 5 MG] 5 mg PO DAILY 09/17/23 [History Confirmed 12/18/23] Glipizide [Glipizide ER] 5 mg PO BID 09/17/23 [History Confirmed 12/18/23] Lisinopril 5 mg [Zestril 5 MG] 5 mg PO DAILY 09/17/23 [History Confirmed 12/18/23] Pravastatin Sodium 40 mg PO DAILY 09/17/23 [History Confirmed 12/18/23] Tamsulosin HCl 0.4 mg [Flomax 0.4 MG] 1 tab PO DAILY 09/17/23 [History Confirmed 12/18/23] Oxycodone HCl/Acetaminophen [Percocet 5-325 mg Tablet] 1 each PO Q4H PRN PRN 7 Days #28 tablet MDD 6 11/27/23 [Rx Confirmed 12/17/23] Esomeprazole Magnesium 40 mg PO DAILY 11/28/23 [History Confirmed 12/18/23] Allergies/Adverse Reactions: Allergies Allergy/AdvReac Type Severity Reaction Status Date / Time morphine Allergy Unknown Verified 12/18/23 08:50 amoxicillin Allergy Rash Verified 12/18/23 08:50 adhesive tape AdvReac Unknown Verified 12/18/23 08:50 - Past Medical History Past Medical History: Yes Neurological History: No Pertinent History ENT History: Cataracts Cardiac History: High Cholesterol, Hypertension Respiratory History: No Pertinent History Endocrine Medical History: Diabetes Type II Musculoskelatal History: Arthritis GI Medical History: No Pertinent History History: No Pertinent History Male Reproductive Disorders: Prostate Problems Comment: PSH: APPENDIX AND GALLBLADDER REMOVED, CERVICAL FUSION (POOR EXPERIENCE WITH CERVICAL NECK MANIPULATION WITH A CHIROPRACTOR). - Past Surgical History Past Surgical History: Yes Neuro Surgical History: No Pertinent History Cardiac History: No Pertinent History Respiratory Surgery: No Pertinent History GI Surgical History: Appendectomy, Cholecystectomy Genitourinary Surgical Hx: No Pertinent History Musculskeletal Surgical Hx: Joint Replacement, Other Male Surgical History: No Pertinent History Other Surgical History: right shoulder replacement. repair of right shoulder - Social History Smoking Status: Former smoker How long have you smoked: 18 years Exposure to second hand smoke: No Alcohol: None Drug Use: none - Social Determinants of Health Will the patient participate in the screening: Yes Do you worry about a steady place to live?: No In the past 12 months,have you had to go without utilities?: No Have you or anyone in your house had to go without enough: No Transportation Issues: No Has anyone in your support network made you feel unsafe?: No - Physical Exam Vital Signs: Vital Signs - 24 hr Temp Pulse Resp BP Pulse Ox 12/18/23 15:12 98.0 F 85 16 177/77 96 12/18/23 09:38 98.0 F 65 18 145/72 99 12/18/23 09:17 98.0 F 65 18 145/72 99 General Appearance: no apparent distress Neurologic Exam: alert, oriented x 3, cooperative Eye Exam: PERRL/EOMI Ears, Nose, Throat Exam: normal ENT inspection Neck Exam: normal inspection Respiratory Exam: normal breath sounds, lungs clear Cardiovascular Exam: regular rate/rhythm, normal heart sounds Skin Exam: normal color, other (Surgical incision to the right shoulder/covered) Results - Labs Lab/Micro Results: Lab Results-Last 24 Hours 12/18/23 12/18/23 12/18/23 Range/Units 09:20 09:20 13:44 WBC 7.1 (4.23-9.07) x10^3/uL RBC 3.73 L (4.63-6.08) x10^6/uL Hgb 11.7 L (13.7-17.5) g/dL Hct 34.8 L (40.1-51.0) % MCV 93.3 H (79.0-92.2) fL MCH 31.4 (25.7-32.2) pg MCHC 33.6 (32.3-36.5) g/dL RDW 13.0 (11.6-14.4) % Plt Count 240 (163-337) x10^3/uL MPV 8.6 L (9.4-12.4) fL Gran % 59.0 (34.0-67.9) % Immature Gran % (Auto) 0.3 (0.001-0.429) % Nucleat RBC Rel Count 0.0 (0.00-0.2) % Eos # (Auto) 0.36 (0.04-0.54) x10^3/uL Immature Gran # (Auto) 0.02 (0.001-0.031) x10^3u/L Absolute Lymphs (auto) 1.78 (1.32-3.57) x10^3/uL Absolute Monos (auto) 0.70 (0.30-0.82) x10^3/uL Absolute Nucleated RBC 0.00 (0.00-0.012) x10^3u/L Lymphocytes % 25.0 (21.8-53.1) % Monocytes % 9.8 (5.3-12.2) % Eosinophils % 5.1 (0.8-7.0) % Basophils % 0.8 (0.2-1.2) % Absolute Granulocytes 4.20 (1.78-5.38) x10^3/uL Basophils # 0.06 (0.01-0.08) x10^3/uL ESR 18 H (0-15) mm/hr Sodium 139 (135-145) mmol/L Potassium 4.1 (3.5-5.1) mmol/L Chloride 106 (98-107) mmol/L Carbon Dioxide 25 (22-30) mmol/L Anion Gap 11.6 (5-15) MEQ/L BUN 18 (9-20) mg/dL Creatinine 1.34 H (0.66-1.25) mg/dL Estimated GFR 51.9 ML/MIN Glucose 156 H (74-106) mg/dL POC Glucometer 132 H (74 to 106) mg/dL Calcium 8.7 (8.4-10.2) mg/dL - Radiology Impressions Radiology Exams & Impressions: Radiology Procedures Category Date Time Status SHOULDER Routine Exams 12/18/23 14:26 Completed Assessment/Plan (1) Infection of shoulder Current Visit: Yes Status: Acute Assessment & Plan: -Ortho following -s/p I&D POD#0 -Pain control -percocet ordered -Vanc -PICC Code(s): M00.9 - PYOGENIC ARTHRITIS, UNSPECIFIED (2) HTN (hypertension) Current Visit: Yes Status: Acute Assessment & Plan: -Continue home meds lisinopril Code(s): I10 - ESSENTIAL (PRIMARY) HYPERTENSION (3) HLD (hyperlipidemia) Current Visit: Yes Status: Acute Assessment & Plan: -Continue statin Code(s): E78.5 - HYPERLIPIDEMIA, UNSPECIFIED (4) Type 2 diabetes mellitus Current Visit: Yes Status: Acute Assessment & Plan: -ADA diet -SSI -A1c VTE: bilat SCD Dispo 1-2 days Telemedicine Encounter - Telemedicine Encounter Telemedicine Encounter: "The entirety of this encounter was performed via Telemedicine" This visit was performed using real-time audio and video connection between my location and thepatients locationwith the assistance of a surrogateat the patients location. Written or verbal consent was obtained from the patient/guardian to perform this visit [facility] technology. Any patient questions regarding the telemedicine interaction were answered.
[2023-12-18] MEDS ORDERED: TYLENOL EXTRA STRENGTH 500 MG PO PRN (17:10)
[2023-12-18] MEDS ORDERED: Zofran 4 MG/2 ML VIAL IV SCH (17:15)
[2023-12-18] MEDS ORDERED: VANCOMYCIN 1 GRAM/200 ML BAG 1 GM/200 ML PIGGYBACK IV SCH (17:15)
[2023-12-18] MEDS ORDERED: Zofran 4 MG/2 ML VIAL IV PRN (17:15)
[2023-12-18] MEDS: PERCOCET TABLET 5/325MG PO PRN (17:32)
--- NOTE | 2023-12-19 05:15 | PCM.NOTE ---
Date and Time: 12/19/23 0514 Subjective Assessment: is a 83 year old male with a pmhx of DM, HLD,and CKD patient of Dr. Hays (Ortho) admitted 12/18/23 s/p I&D of right shoulder. 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 Hospitalist team has been consulted for medical management. Patient does report aching pain to the right shoulder at the incision site with a numerical rating of 3/10. No other complaints at this time. Denies fever,cough, sob, cp, abdominal pain, FRITZ, dizziness, N/V/D. 12/19/23: Patient up in chair. Endorses aching right shoulder pain 5/10. No other co mplaints this morning. Wound cultures with NGTD. Ortho following -to decide on abx. PICC placed. - Review of Systems Constitutional: No Symptoms Eyes: No Symptoms Ears, Nose, & Throat: No Symptoms Respiratory: No Symptoms Cardiac: No Symptoms Abdominal/Gastrointestinal: No Symptoms Genitourinary Symptoms: No Symptoms Musculoskeletal: Joint Pain (right shoulder) Skin: Other (surgical incision with drain to the right shoulder covered with dressing) Neurological: No Symptoms Psychological: No Symptoms Endocrine: No Symptoms Hematologic/Lymphatic: No Symptoms Immunological/Allergic: No Symptoms Objective Exam General Appearance: no apparent distress Neurologic Exam: alert, oriented x 3, cooperative Skin Exam: other (surgical incision with drain to the right shoulder covered with dressing) Eye Exam: PERRL Ears, Nose, Throat Exam: normal ENT inspection Neck Exam: normal inspection Respiratory Exam: normal breath sounds, lungs clear Cardiovascular Exam: regular rate/rhythm, normal heart sounds Gastrointestinal/Abdomen Exam: soft, normal bowel sounds Extremity Exam: other (see skin assessment) Male Genitalia Exam: deferred Rectal Exam: deferred Objective Data Vital Signs: Vital Signs - 24 hr Temp Pulse Resp BP Pulse Ox 12/19/23 03:00 98.2 F 65 17 161/70 96 12/18/23 23:00 98.2 F 66 18 141/67 97 12/18/23 19:00 97.8 F 81 17 130/80 95 12/18/23 15:21 96.0 F 85 16 177/77 96 12/18/23 15:12 98.0 F 85 16 177/77 96 12/18/23 09:38 98.0 F 65 18 145/72 99 12/18/23 09:17 98.0 F 65 18 99 Pain Assessment - Last Documented Pain Intensity 8 Pain Scale Used 0-10 Pain Scale Intake and Output: Intake & Output 12/16/23 12/17/23 12/18/23 12/19/23 11:59 11:59 11:59 11:59 Intake Total 1416 Output Total 750 Balance 666 Weight 70.7 kg 70.7 kg Lab Results: Lab Results-Last 24 Hours 12/18/23 12/18/23 12/18/23 Range/Units 09:20 09:20 09:20 WBC 7.1 (4.23-9.07) x10^3/uL RBC 3.73 L (4.63-6.08) x10^6/uL Hgb 11.7 L (13.7-17.5) g/dL Hct 34.8 L (40.1-51.0) % MCV 93.3 H (79.0-92.2) fL MCH 31.4 (25.7-32.2) pg MCHC 33.6 (32.3-36.5) g/dL RDW 13.0 (11.6-14.4) % Plt Count 240 (163-337) x10^3/uL MPV 8.6 L (9.4-12.4) fL Gran % 59.0 (34.0-67.9) % Immature Gran % (Auto) 0.3 (0.001-0.429) % Nucleat RBC Rel Count 0.0 (0.00-0.2) % Eos # (Auto) 0.36 (0.04-0.54) x10^3/uL Immature Gran # (Auto) 0.02 (0.001-0.031) x10^3u/L Absolute Lymphs (auto) 1.78 (1.32-3.57) x10^3/uL Absolute Monos (auto) 0.70 (0.30-0.82) x10^3/uL Absolute Nucleated RBC 0.00 (0.00-0.012) x10^3u/L Lymphocytes % 25.0 (21.8-53.1) % Monocytes % 9.8 (5.3-12.2) % Eosinophils % 5.1 (0.8-7.0) % Basophils % 0.8 (0.2-1.2) % Absolute Granulocytes 4.20 (1.78-5.38) x10^3/uL Basophils # 0.06 (0.01-0.08) x10^3/uL ESR 18 H (0-15) mm/hr Sodium 139 (135-145) mmol/L Potassium 4.1 (3.5-5.1) mmol/L Chloride 106 (98-107) mmol/L Carbon Dioxide 25 (22-30) mmol/L Anion Gap 11.6 (5-15) MEQ/L BUN 18 (9-20) mg/dL Creatinine 1.34 H (0.66-1.25) mg/dL Estimated GFR 51.9 ML/MIN Glucose 156 H (74-106) mg/dL POC Glucometer (74 to 106) mg/dL Hemoglobin A1c 7.11 H (4.5-6.0) % Calcium 8.7 (8.4-10.2) mg/dL 12/18/23 12/18/23 Range/Units 13:44 21:01 WBC (4.23-9.07) x10^3/uL RBC (4.63-6.08) x10^6/uL Hgb (13.7-17.5) g/dL Hct (40.1-51.0) % MCV (79.0-92.2) fL MCH (25.7-32.2) pg MCHC (32.3-36.5) g/dL RDW (11.6-14.4) % Plt Count (163-337) x10^3/uL MPV (9.4-12.4) fL Gran % (34.0-67.9) % Immature Gran % (Auto) (0.001-0.429) % Nucleat RBC Rel Count (0.00-0.2) % Eos # (Auto) (0.04-0.54) x10^3/uL Immature Gran # (Auto) (0.001-0.031) x10^3u/L Absolute Lymphs (auto) (1.32-3.57) x10^3/uL Absolute Monos (auto) (0.30-0.82) x10^3/uL Absolute Nucleated RBC (0.00-0.012) x10^3u/L Lymphocytes % (21.8-53.1) % Monocytes % (5.3-12.2) % Eosinophils % (0.8-7.0) % Basophils % (0.2-1.2) % Absolute Granulocytes (1.78-5.38) x10^3/uL Basophils # (0.01-0.08) x10^3/uL ESR (0-15) mm/hr Sodium (135-145) mmol/L Potassium (3.5-5.1) mmol/L Chloride (98-107) mmol/L Carbon Dioxide (22-30) mmol/L Anion Gap (5-15) MEQ/L BUN (9-20) mg/dL Creatinine (0.66-1.25) mg/dL Estimated GFR ML/MIN Glucose (74-106) mg/dL POC Glucometer 132 H 157 H (74 to 106) mg/dL Hemoglobin A1c (4.5-6.0) % Calcium (8.4-10.2) mg/dL Radiology Exams: Radiology Procedures Category Date Time Status CHEST 1 VIEW (PORTABLE) Stat Exams 12/18/23 19:44 Taken CHEST 1 VIEW (PORTABLE) Stat Exams 12/18/23 19:53 Taken SHOULDER Routine Exams 12/18/23 14:26 Completed Assessment/Plan (1) Infection of shoulder Current Visit: Yes Status: Acute Assessment & Plan: -Ortho following -s/p I&D POD#1 -Pain control -percocet ordered - controlled -Vanc -PICC Code(s): M00.9 - PYOGENIC ARTHRITIS, UNSPECIFIED (2) HTN (hypertension) Current Visit: Yes Status: Acute Assessment & Plan: -Continue home meds lisinopril Code(s): I10 - ESSENTIAL (PRIMARY) HYPERTENSION (3) HLD (hyperlipidemia) Current Visit: Yes Status: Acute Assessment & Plan: -Continue statin Code(s): E78.5 - HYPERLIPIDEMIA, UNSPECIFIED (4) Type 2 diabetes mellitus Current Visit: Yes Status: Acute Assessment & Plan: -ADA diet -SSI -A1c VTE: bilat SCD Dispo 1-2 days Code(s): M00.9 - PYOGENIC ARTHRITIS, UNSPECIFIED (2) HTN (hypertension) Current Visit: Yes Status: Acute Code(s): I10 - ESSENTIAL (PRIMARY) HYPERTENSION (3) HLD (hyperlipidemia) Current Visit: Yes Status: Acute Code(s): E78.5 - HYPERLIPIDEMIA, UNSPECIFIED (4) Type 2 diabetes mellitus Current Visit: Yes Status: Acute
[2023-12-19 05:26] LABS: Absolute Neutrophil Ct (ANC) 5.14 x10^3/uL (1.78-5.38); BASOPHIL % 0.8 % (0.2-1.2); Basophil (Absolute #) 0.07 x10^3/uL (0.01-0.08); Eosinophil % 5.8 % (0.8-7.0); Eosinophil (Absolute #) 0.53 x10^3/uL (0.04-0.54); Hematocrit 34.3 % (40.1-51.0); IMMATURE GRAN # 0.03 x10^3u/L (0.001-0.031); IMMATURE GRAN % 0.3 % (0.001-0.429); Lymphocyte (Absolute #) 2.33 x10^3/uL (1.32-3.57); Lymphocytes % 25.4 % (21.8-53.1); Mean Cell Volume 96.6 fL (79.0-92.2); Mean Corpuscular Hgb Concent. 32.1 g/dL (32.3-36.5); Mean Platelet Volume 9.4 fL (9.4-12.4); Monocyte (Absolute #) 1.07 x10^3/uL (0.30-0.82); Monocytes % 11.7 % (5.3-12.2); Platelet Count 223 x10^3/uL (163-337); Red Blood Count 3.55 x10^6/uL (4.63-6.08); Red Cell Distribution Width 12.9 % (11.6-14.4); White Blood Count 9.2 x10^3/uL (4.23-9.07)
[2023-12-19 06:19] LABS: ALBUMIN 3.2 g/dL (3.5-5.0); ANION GAP 10.8 MEQ/L (5-15); BILIRUBIN,TOTAL 1.2 mg/dL (0.2-1.3); Calcium 8.2 mg/dL (8.4-10.2); Creatinine 1 1.29 mg/dL (0.66-1.25); EST GLOMERULAR FILTRATION RATE 54.3 ML/MIN; Potassium 4.2 mmol/L (3.5-5.1); Total Protein 5.8 g/dL (6.3-8.2)
[2023-12-19] MEDS: Sodium Chloride 0.9% 1000 ML 1,000 ML IV SCH (08:36)
--- NOTE | 2023-12-19 08:41 | XRAY ---
Indication: PICC line placement. Comparison: None. Portable chest demonstrates left arm PICC line with tip partially coiled in left brachiocephalic vein just right of midline. Remaining heart and lungs unremarkable. Bony thorax intact with osteopenia, degenerative changes, and incompletely visualized right shoulder arthroplasty.
--- NOTE | 2023-12-19 08:43 | XRAY ---
Indication: PICC line placement. Comparison: Taken earlier in the day. Portable chest demonstrates advancement of left arm PICC line with tip now projecting over atrial caval junction. Remaining heart and lungs unremarkable.
[2023-12-19] MEDS ORDERED: NON-FORMULARY ITEM (Esomeprazole Magnesium [Esomeprazole Magnesium] 40 MG Capsule.Dr) PO SCH (10:00)
[2023-12-19] MEDS: Protonix 40MG Tablet PO SCH (10:00)
[2023-12-19] MEDS ORDERED: NON-FORMULARY ITEM (Pravastatin Sodium [Pravastatin Sodium] 40 MG Tablet) PO SCH (10:00)
[2023-12-19] MEDS: Zestril 5 MG PO SCH (10:01)
[2023-12-19] MEDS: ZOCOR 20MG PO SCH (10:01)
[2023-12-19] MEDS: Zetia 10 MG PO SCH (10:01)
[2023-12-19] MEDS: Flomax 0.4 MG PO SCH (10:02)
[2023-12-19] MEDS: Proscar 5 MG PO SCH (10:16)
[2023-12-19] MEDS: ECOTRIN 81 MG PO SCH (14:03)
[2023-12-19] MEDS: ROCEPHIN 2 GM/100 ML NACL 2 GM/100 ML IVPB IV SCH (15:10)
[2023-12-19] MEDS: VANCOMYCIN 1 GRAM/200 ML BAG 1 GM/200 ML PIGGYBACK IV SCH (15:43)
--- NOTE | 2023-12-20 05:13 | PCM.NOTE ---
Date and Time: 12/20/23 0511 Subjective Assessment: is a 83 year old male with a pmhx of DM, HLD,and CKD patient of Dr. Cordova (Ortho) admitted 12/18/23 s/p I&D of right shoulder. 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 Hospitalist team has been consulted for medical management. Patient does report aching pain to the right shoulder at the incision site with a numerical rating of 3/10. No other complaints at this time. Denies fever,cough, sob, cp, abdominal pain, FRITZ, dizziness, N/V/D. 12/19/23: Patient up in chair. Endorses aching right shoulder pain 5/10. No other co mplaints this morning. Wound cultures with NGTD. Ortho following -to decide on abx. PICC placed. 12/20/23: Patient doing well this morning. Pain is controlled. Wound cultures NGTD. Waiting on wound vac. Antibiotics per Ortho. Labs/vitals stable. Denies fever,cough, sob, cp, abdominal pain, FRITZ, dizziness, N/V/D. - Review of Systems Constitutional: No Symptoms Eyes: No Symptoms Ears, Nose, & Throat: No Symptoms Respiratory: No Symptoms Cardiac: No Symptoms Abdominal/Gastrointestinal: No Symptoms Genitourinary Symptoms: No Symptoms Musculoskeletal: No Symptoms, Joint Pain (right shoulder) Skin: Other (Right shoulder with surgical dressing and drain) Neurological: No Symptoms Psychological: No Symptoms Endocrine: No Symptoms Hematologic/Lymphatic: No Symptoms Immunological/Allergic: No Symptoms Objective Exam General Appearance: no apparent distress Neurologic Exam: alert, oriented x 3, cooperative Skin Exam: other (Right should surgical incision with drain - covered) Eye Exam: PERRL Ears, Nose, Throat Exam: normal ENT inspection Neck Exam: normal inspection Respiratory Exam: normal breath sounds, lungs clear Cardiovascular Exam: regular rate/rhythm, normal heart sounds Gastrointestinal/Abdomen Exam: soft, normal bowel sounds Extremity Exam: limited range of motion (right shoulder due to pain) Male Genitalia Exam: deferred Rectal Exam: deferred Objective Data Vital Signs: Vital Signs - 24 hr Temp Pulse Resp BP Pulse Ox 07/26/24 04:00 99.1 F 72 17 147/65 94 L 12/20/23 00:00 98.7 F 68 16 167/72 95 12/19/23 20:00 98.2 F 74 18 169/77 97 12/19/23 15:52 98.2 F 68 16 146/67 96 12/19/23 11:32 97.7 F 65 16 153/72 97 12/19/23 06:54 98.1 F 65 16 174/78 93 L Pain Assessment - Last Documented Pain Intensity 2 Pain Scale Used 0-10 Pain Scale Intake and Output: Intake & Output 12/17/23 12/18/23 12/19/23 12/20/23 11:59 11:59 11:59 11:59 Intake Total 1416 620 Output Total 750 30 Balance 666 590 Weight 70.7 kg 70.7 kg Lab Results: Lab Results-Last 24 Hours 12/18/23 12/19/23 12/19/23 Range/Units 09:20 04:23 04:23 WBC 9.2 H (4.23-9.07) x10^3/uL RBC 3.55 L (4.63-6.08) x10^6/uL Hgb 11.0 L (13.7-17.5) g/dL Hct 34.3 L (40.1-51.0) % MCV 96.6 H (79.0-92.2) fL MCH 31.0 (25.7-32.2) pg MCHC 32.1 L (32.3-36.5) g/dL RDW 12.9 (11.6-14.4) % Plt Count 223 (163-337) x10^3/uL MPV 9.4 (9.4-12.4) fL Gran % 56.0 (34.0-67.9) % Immature Gran % (Auto) 0.3 (0.001-0.429) % Nucleat RBC Rel Count 0.0 (0.00-0.2) % Eos # (Auto) 0.53 (0.04-0.54) x10^3/uL Immature Gran # (Auto) 0.03 (0.001-0.031) x10^3u/L Absolute Lymphs (auto) 2.33 (1.32-3.57) x10^3/uL Absolute Monos (auto) 1.07 H (0.30-0.82) x10^3/uL Absolute Nucleated RBC 0.00 (0.00-0.012) x10^3u/L Lymphocytes % 25.4 (21.8-53.1) % Monocytes % 11.7 (5.3-12.2) % Eosinophils % 5.8 (0.8-7.0) % Basophils % 0.8 (0.2-1.2) % Absolute Granulocytes 5.14 (1.78-5.38) x10^3/uL Basophils # 0.07 (0.01-0.08) x10^3/uL Sodium 136 (135-145) mmol/L Potassium 4.2 (3.5-5.1) mmol/L Chloride 106 (98-107) mmol/L Carbon Dioxide 23 (22-30) mmol/L Anion Gap 10.8 (5-15) MEQ/L BUN 20 (9-20) mg/dL Creatinine 1.29 H (0.66-1.25) mg/dL Estimated GFR 54.3 ML/MIN Glucose 106 (74-106) mg/dL POC Glucometer (74 to 106) mg/dL Calcium 8.2 L (8.4-10.2) mg/dL Total Bilirubin 1.20 (0.2-1.3) mg/dL AST 33 (17-59) U/L ALT 15 (0-50) U/L Alkaline Phosphatase 107 (38-126) U/L C-Reactive Prot, Quant 3 (0-10) mg/L Serum Total Protein 5.8 L (6.3-8.2) g/dL Albumin 3.2 L (3.5-5.0) g/dL 12/19/23 12/19/23 12/19/23 Range/Units 06:46 11:53 16:35 WBC (4.23-9.07) x10^3/uL RBC (4.63-6.08) x10^6/uL Hgb (13.7-17.5) g/dL Hct (40.1-51.0) % MCV (79.0-92.2) fL MCH (25.7-32.2) pg MCHC (32.3-36.5) g/dL RDW (11.6-14.4) % Plt Count (163-337) x10^3/uL MPV (9.4-12.4) fL Gran % (34.0-67.9) % Immature Gran % (Auto) (0.001-0.429) % Nucleat RBC Rel Count (0.00-0.2) % Eos # (Auto) (0.04-0.54) x10^3/uL Immature Gran # (Auto) (0.001-0.031) x10^3u/L Absolute Lymphs (auto) (1.32-3.57) x10^3/uL Absolute Monos (auto) (0.30-0.82) x10^3/uL Absolute Nucleated RBC (0.00-0.012) x10^3u/L Lymphocytes % (21.8-53.1) % Monocytes % (5.3-12.2) % Eosinophils % (0.8-7.0) % Basophils % (0.2-1.2) % Absolute Granulocytes (1.78-5.38) x10^3/uL Basophils # (0.01-0.08) x10^3/uL Sodium (135-145) mmol/L Potassium (3.5-5.1) mmol/L Chloride (98-107) mmol/L Carbon Dioxide (22-30) mmol/L Anion Gap (5-15) MEQ/L BUN (9-20) mg/dL Creatinine (0.66-1.25) mg/dL Estimated GFR ML/MIN Glucose (74-106) mg/dL POC Glucometer 104 125 H 162 H (74 to 106) mg/dL Calcium (8.4-10.2) mg/dL Total Bilirubin (0.2-1.3) mg/dL AST (17-59) U/L ALT (0-50) U/L Alkaline Phosphatase (38-126) U/L C-Reactive Prot, Quant (0-10) mg/L Serum Total Protein (6.3-8.2) g/dL Albumin (3.5-5.0) g/dL 12/19/23 Range/Units 21:11 WBC (4.23-9.07) x10^3/uL RBC (4.63-6.08) x10^6/uL Hgb (13.7-17.5) g/dL Hct (40.1-51.0) % MCV (79.0-92.2) fL MCH (25.7-32.2) pg MCHC (32.3-36.5) g/dL RDW (11.6-14.4) % Plt Count (163-337) x10^3/uL MPV (9.4-12.4) fL Gran % (34.0-67.9) % Immature Gran % (Auto) (0.001-0.429) % Nucleat RBC Rel Count (0.00-0.2) % Eos # (Auto) (0.04-0.54) x10^3/uL Immature Gran # (Auto) (0.001-0.031) x10^3u/L Absolute Lymphs (auto) (1.32-3.57) x10^3/uL Absolute Monos (auto) (0.30-0.82) x10^3/uL Absolute Nucleated RBC (0.00-0.012) x10^3u/L Lymphocytes % (21.8-53.1) % Monocytes % (5.3-12.2) % Eosinophils % (0.8-7.0) % Basophils % (0.2-1.2) % Absolute Granulocytes (1.78-5.38) x10^3/uL Basophils # (0.01-0.08) x10^3/uL Sodium (135-145) mmol/L Potassium (3.5-5.1) mmol/L Chloride (98-107) mmol/L Carbon Dioxide (22-30) mmol/L Anion Gap (5-15) MEQ/L BUN (9-20) mg/dL Creatinine (0.66-1.25) mg/dL Estimated GFR ML/MIN Glucose (74-106) mg/dL POC Glucometer 203 H (74 to 106) mg/dL Calcium (8.4-10.2) mg/dL Total Bilirubin (0.2-1.3) mg/dL AST (17-59) U/L ALT (0-50) U/L Alkaline Phosphatase (38-126) U/L C-Reactive Prot, Quant (0-10) mg/L Serum Total Protein (6.3-8.2) g/dL Albumin (3.5-5.0) g/dL Radiology Exams: Radiology Procedures Category Date Time Status CHEST 1 VIEW (PORTABLE) Stat Exams 12/18/23 19:44 Completed CHEST 1 VIEW (PORTABLE) Stat Exams 12/18/23 19:53 Completed SHOULDER Routine Exams 12/18/23 14:26 Completed Multi-Disciplinary Progress Notes: Multi-Disciplinary Progress Notes 12/19/23 15:52 Case Management Note by Berkley Sands REPORTS THE SOONEST THEY CAN START PATIENT ON FOR HOME CARE WITH INFUSIONS IS SATURDAY- DR. CORDOVA NOTIFIED Initialized on 12/19/23 15:52 - END OF NOTE 12/19/23 15:46 Case Management Note by Berkley Sands S/Nilton CORDOVA REGARDING HOME INFUSIONS- NEW ORDERS RECEIVED FOR ROCEPHIN AND VANC X 4 WEEKS AT HOME- ORDERS SENT TO [facility] WITH INFO ON PICC LINE Initialized on 12/19/23 15:46 - END OF NOTE 12/19/23 12:30 Case Management Note by Renetta Islas S/W SIMÓN AFTER FAXING INFO TO [facility] TO CHECK COVERAGE FOR IV ANTIBIOTICS. SHE STATED PATIENT HAD PART D COVERAGE AND WAS OK FOR MEDS. WILL NEED TO SEND RX WHEN ORDERED. REFERRAL FAXED TO [facility]. THEY WILL NEED NOTIFIED AT TIME OF DC AT [phone]. THEY WILL NEED FAXED THE THE DC INSTRUCTIONS, DC MED LIST AND DC SUMMARY (IF AVAILABLE) TO [phone] Initialized on 12/19/23 12:30 - END OF NOTE Assessment/Plan (1) Infection of shoulder Current Visit: Yes Status: Acute Assessment & Plan: -Ortho following -s/p I&D POD#1 -Pain control -percocet ordered - controlled -Vanc -PICC 12/19: Plan for wound vac placement - abx per ortho Code(s): M00.9 - PYOGENIC ARTHRITIS, UNSPECIFIED (2) HTN (hypertension) Current Visit: Yes Status: Acute Assessment & Plan: -Continue home meds lisinopril Code(s): I10 - ESSENTIAL (PRIMARY) HYPERTENSION (3) HLD (hyperlipidemia) Current Visit: Yes Status: Acute Assessment & Plan: -Continue statin Code(s): E78.5 - HYPERLIPIDEMIA, UNSPECIFIED (4) Type 2 diabetes mellitus Current Visit: Yes Status: Acute Assessment & Plan: -ADA diet -SSI -A1c VTE: bilat SCD Dispo 1-2 days Code(s): M00.9 - PYOGENIC ARTHRITIS, UNSPECIFIED (2) HTN (hypertension) Current Visit: Yes Status: Acute Code(s): I10 - ESSENTIAL (PRIMARY) HYPERTENSION (3) HLD (hyperlipidemia) Current Visit: Yes Status: Acute Code(s): E78.5 - HYPERLIPIDEMIA, UNSPECIFIED (4) Type 2 diabetes mellitus Current Visit: Yes Status: Acute
[2023-12-20 05:23] LABS: Absolute Neutrophil Ct (ANC) 4.28 x10^3/uL (1.78-5.38); BASOPHIL % 0.6 % (0.2-1.2); Basophil (Absolute #) 0.04 x10^3/uL (0.01-0.08); Eosinophil % 6.3 % (0.8-7.0); Eosinophil (Absolute #) 0.45 x10^3/uL (0.04-0.54); Hematocrit 36.1 % (40.1-51.0); Hemoglobin 11.7 g/dL (13.7-17.5); IMMATURE GRAN # 0.02 x10^3u/L (0.001-0.031); IMMATURE GRAN % 0.3 % (0.001-0.429); Lymphocyte (Absolute #) 1.86 x10^3/uL (1.32-3.57); Lymphocytes % 26.2 % (21.8-53.1); Mean Cell Volume 94.3 fL (79.0-92.2); Mean Corpuscular Hemoglobin 30.5 pg (25.7-32.2); Mean Corpuscular Hgb Concent. 32.4 g/dL (32.3-36.5); Mean Platelet Volume 9.6 fL (9.4-12.4); Monocyte (Absolute #) 0.46 x10^3/uL (0.30-0.82); Monocytes % 6.5 % (5.3-12.2); Neutrophil % 60.1 % (34.0-67.9); Platelet Count 242 x10^3/uL (163-337); Red Blood Count 3.83 x10^6/uL (4.63-6.08); Red Cell Distribution Width 12.9 % (11.6-14.4); White Blood Count 7.1 x10^3/uL (4.23-9.07)
[2023-12-20 05:28] LABS: ALBUMIN 3.5 g/dL (3.5-5.0); ANION GAP 12.2 MEQ/L (5-15); BILIRUBIN,TOTAL 0.8 mg/dL (0.2-1.3); Calcium 8.3 mg/dL (8.4-10.2); Creatinine 1 1.41 mg/dL (0.66-1.25); EST GLOMERULAR FILTRATION RATE 48.8 ML/MIN; Total Protein 6.2 g/dL (6.3-8.2)
[2023-12-20 07:32] VITALS: RESP 16; TEMP 98.2
--- NOTE | 2023-12-20 08:11 | PCM.NOTE ---
Date and Time: 12/20/23803 Subjective Assessment: Pt seen 12/18 but note not entered due to password access S--no c/o O--small amount HV drainage otherwise benign cultures pending gram stain neg A--s/p I and D for right shoulder suspected infection P--monitor lab, cont abx, insert PICC waiting on Prevena sls A Objective Data Vital Signs: Vital Signs - 24 hr Temp Pulse Resp BP Pulse Ox 12/20/23 07:31 98.2 F 65 16 168/71 96 12/20/23 04:00 99.1 F 72 17 147/65 94 L 12/20/23 00:00 98.7 F 68 16 167/72 95 12/19/23 20:00 98.2 F 74 18 169/77 97 12/19/23 15:52 98.2 F 68 16 146/67 96 12/19/23 11:32 97.7 F 65 16 153/72 97 Pain Assessment - Last Documented Pain Intensity 5 Pain Scale Used 0-10 Pain Scale Intake and Output: Intake & Output 12/17/23 12/18/23 12/19/23 12/20/23 11:59 11:59 11:59 11:59 Intake Total 1416 620 Output Total 750 30 Balance 666 590 Weight 70.7 kg 70.7 kg Lab Results: Lab Results-Last 24 Hours 12/18/23 12/19/23 12/19/23 Range/Units 09:20 11:53 16:35 WBC (4.23-9.07) x10^3/uL RBC (4.63-6.08) x10^6/uL Hgb (13.7-17.5) g/dL Hct (40.1-51.0) % MCV (79.0-92.2) fL MCH (25.7-32.2) pg MCHC (32.3-36.5) g/dL RDW (11.6-14.4) % Plt Count (163-337) x10^3/uL MPV (9.4-12.4) fL Gran % (34.0-67.9) % Immature Gran % (Auto) (0.001-0.429) % Nucleat RBC Rel Count (0.00-0.2) % Eos # (Auto) (0.04-0.54) x10^3/uL Immature Gran # (Auto) (0.001-0.031) x10^3u/L Absolute Lymphs (auto) (1.32-3.57) x10^3/uL Absolute Monos (auto) (0.30-0.82) x10^3/uL Absolute Nucleated RBC (0.00-0.012) x10^3u/L Lymphocytes % (21.8-53.1) % Monocytes % (5.3-12.2) % Eosinophils % (0.8-7.0) % Basophils % (0.2-1.2) % Absolute Granulocytes (1.78-5.38) x10^3/uL Basophils # (0.01-0.08) x10^3/uL Sodium (135-145) mmol/L Potassium (3.5-5.1) mmol/L Chloride (98-107) mmol/L Carbon Dioxide (22-30) mmol/L Anion Gap (5-15) MEQ/L BUN (9-20) mg/dL Creatinine (0.66-1.25) mg/dL Estimated GFR ML/MIN Glucose (74-106) mg/dL POC Glucometer 125 H 162 H (74 to 106) mg/dL Calcium (8.4-10.2) mg/dL Total Bilirubin (0.2-1.3) mg/dL AST (17-59) U/L ALT (0-50) U/L Alkaline Phosphatase (38-126) U/L C-Reactive Prot, Quant 3 (0-10) mg/L Serum Total Protein (6.3-8.2) g/dL Albumin (3.5-5.0) g/dL 12/19/23 12/20/23 12/20/23 Range/Units 21:11 04:21 04:21 WBC 7.1 (4.23-9.07) x10^3/uL RBC 3.83 L (4.63-6.08) x10^6/uL Hgb 11.7 L (13.7-17.5) g/dL Hct 36.1 L (40.1-51.0) % MCV 94.3 H (79.0-92.2) fL MCH 30.5 (25.7-32.2) pg MCHC 32.4 (32.3-36.5) g/dL RDW 12.9 (11.6-14.4) % Plt Count 242 (163-337) x10^3/uL MPV 9.6 (9.4-12.4) fL Gran % 60.1 (34.0-67.9) % Immature Gran % (Auto) 0.3 (0.001-0.429) % Nucleat RBC Rel Count 0.0 (0.00-0.2) % Eos # (Auto) 0.45 (0.04-0.54) x10^3/uL Immature Gran # (Auto) 0.02 (0.001-0.031) x10^3u/L Absolute Lymphs (auto) 1.86 (1.32-3.57) x10^3/uL Absolute Monos (auto) 0.46 (0.30-0.82) x10^3/uL Absolute Nucleated RBC 0.00 (0.00-0.012) x10^3u/L Lymphocytes % 26.2 (21.8-53.1) % Monocytes % 6.5 (5.3-12.2) % Eosinophils % 6.3 (0.8-7.0) % Basophils % 0.6 (0.2-1.2) % Absolute Granulocytes 4.28 (1.78-5.38) x10^3/uL Basophils # 0.04 (0.01-0.08) x10^3/uL Sodium 136 (135-145) mmol/L Potassium 4.0 (3.5-5.1) mmol/L Chloride 105 (98-107) mmol/L Carbon Dioxide 23 (22-30) mmol/L Anion Gap 12.2 (5-15) MEQ/L BUN 22 H (9-20) mg/dL Creatinine 1.41 H (0.66-1.25) mg/dL Estimated GFR 48.8 ML/MIN Glucose 148 H (74-106) mg/dL POC Glucometer 203 H (74 to 106) mg/dL Calcium 8.3 L (8.4-10.2) mg/dL Total Bilirubin 0.80 (0.2-1.3) mg/dL AST 26 (17-59) U/L ALT 15 (0-50) U/L Alkaline Phosphatase 121 (38-126) U/L C-Reactive Prot, Quant (0-10) mg/L Serum Total Protein 6.2 L (6.3-8.2) g/dL Albumin 3.5 (3.5-5.0) g/dL 12/20/23 Range/Units 07:14 WBC (4.23-9.07) x10^3/uL RBC (4.63-6.08) x10^6/uL Hgb (13.7-17.5) g/dL Hct (40.1-51.0) % MCV (79.0-92.2) fL MCH (25.7-32.2) pg MCHC (32.3-36.5) g/dL RDW (11.6-14.4) % Plt Count (163-337) x10^3/uL MPV (9.4-12.4) fL Gran % (34.0-67.9) % Immature Gran % (Auto) (0.001-0.429) % Nucleat RBC Rel Count (0.00-0.2) % Eos # (Auto) (0.04-0.54) x10^3/uL Immature Gran # (Auto) (0.001-0.031) x10^3u/L Absolute Lymphs (auto) (1.32-3.57) x10^3/uL Absolute Monos (auto) (0.30-0.82) x10^3/uL Absolute Nucleated RBC (0.00-0.012) x10^3u/L Lymphocytes % (21.8-53.1) % Monocytes % (5.3-12.2) % Eosinophils % (0.8-7.0) % Basophils % (0.2-1.2) % Absolute Granulocytes (1.78-5.38) x10^3/uL Basophils # (0.01-0.08) x10^3/uL Sodium (135-145) mmol/L Potassium (3.5-5.1) mmol/L Chloride (98-107) mmol/L Carbon Dioxide (22-30) mmol/L Anion Gap (5-15) MEQ/L BUN (9-20) mg/dL Creatinine (0.66-1.25) mg/dL Estimated GFR ML/MIN Glucose (74-106) mg/dL POC Glucometer 152 H (74 to 106) mg/dL Calcium (8.4-10.2) mg/dL Total Bilirubin (0.2-1.3) mg/dL AST (17-59) U/L ALT (0-50) U/L Alkaline Phosphatase (38-126) U/L C-Reactive Prot, Quant (0-10) mg/L Serum Total Protein (6.3-8.2) g/dL Albumin (3.5-5.0) g/dL Radiology Exams: Radiology Procedures Category Date Time Status CHEST 1 VIEW (PORTABLE) Stat Exams 12/18/23 19:44 Completed CHEST 1 VIEW (PORTABLE) Stat Exams 12/18/23 19:53 Completed SHOULDER Routine Exams 12/18/23 14:26 Completed Multi-Disciplinary Progress Notes: Multi-Disciplinary Progress Notes 12/19/23 15:52 Case Management Note by Berkley Sands REPORTS [facility] THEY CAN START PATIENT ON FOR HOME CARE WITH I NFUSIONS IS SATURDAY- DR. CORDOVA NOTIFIED Initialized on 12/19/23 15:52 - END OF NOTE 12/19/23 15:46 Case Management Note by Berkley Sands S/W DR. CORDOVA REGARDING HOME INFUSIONS- NEW ORDERS RECEIVED FOR ROCEPHIN AND VANC X 4 WEEKS AT HOME- ORDERS SENT TO [facility] WITH INFO ON PICC LINE Initialized on 12/19/23 15:46 - END OF NOTE 12/19/23 12:30 Case Management Note by Renetta Islas S/W SIM[facility] AFTER FAXING INFO TO [facility] TO CHECK COVERAGE FOR IV ANTIBIOTICS. SHE STATED PATIENT HAD PART D COVERAGE AND WAS OK FOR MEDS. WILL NEED TO SEND RX WHEN ORDERED. REFERRAL FAXED TO [facility]. THEY WILL NEED NOTIFIED AT TIME OF DC AT [phone]. THEY WILL NEED FAXED THE THE DC INSTRUCTIONS, DC MED LIST AND DC SUMMARY (IF AVAILABLE) TO [phone] Initialized on 12/19/23 12:30 - END OF NOTE
[2023-12-20] MEDS: Docusate Sodium 100 MG PO SCH (09:58)
[2023-12-20 11:23] VITALS: BP 152/66; PULSE 68; O2SAT 97
--- NOTE | 2023-12-20 12:26 | PCM.NOTE ---
Date and Time: 12/20/23 1221 Ortho Progress note POD 2 Incision and drainage right shoulder S--No new complaints, pain controlled O--aw, al, nad VSS Lab stable NGSF on cultures Shoulder incision benighn, no visiible new drainage in HV since yest A--POD 2 I and D of right shoulder, suspected infection P--ok for discharge to home with outpatient ABX PICC in place Drain removed today and Prevena placed F/U Saturday with Dr Negron Objective Data Vital Signs: Vital Signs - 24 hr Temp Pulse Resp BP Pulse Ox 12/20/23 11:21 98.2 F 68 16 152/66 97 12/20/23 07:31 98.2 F 65 16 168/71 96 12/20/23 04:00 99.1 F 72 17 147/65 94 L 12/20/23 00:00 98.7 F 68 16 167/72 95 12/19/23 20:00 98.2 F 74 18 169/77 97 12/19/23 15:52 98.2 F 68 16 146/67 96 Pain Assessment - Last Documented Pain Intensity 3 Pain Scale Used 0-10 Pain Scale Intake and Output: Intake & Output 12/18/23 12/19/23 12/20/23 12/21/23 11:59 11:59 11:59 11:59 Intake Total 1416 1100 Output Total 750 30 Balance 666 1070 Weight 70.7 kg 70.7 kg Lab Results: Lab Results-Last 24 Hours 12/18/23 12/19/23 12/19/23 Range/Units 09:20 16:35 21:11 WBC (4.23-9.07) x10^3/uL RBC (4.63-6.08) x10^6/uL Hgb (13.7-17.5) g/dL Hct (40.1-51.0) % MCV (79.0-92.2) fL MCH (25.7-32.2) pg MCHC (32.3-36.5) g/dL RDW (11.6-14.4) % Plt Count (163-337) x10^3/uL MPV (9.4-12.4) fL Gran % (34.0-67.9) % Immature Gran % (Auto) (0.001-0.429) % Nucleat RBC Rel Count (0.00-0.2) % Eos # (Auto) (0.04-0.54) x10^3/uL Immature Gran # (Auto) (0.001-0.031) x10^3u/L Absolute Lymphs (auto) (1.32-3.57) x10^3/uL Absolute Monos (auto) (0.30-0.82) x10^3/uL Absolute Nucleated RBC (0.00-0.012) x10^3u/L Lymphocytes % (21.8-53.1) % Monocytes % (5.3-12.2) % Eosinophils % (0.8-7.0) % Basophils % (0.2-1.2) % Absolute Granulocytes (1.78-5.38) x10^3/uL Basophils # (0.01-0.08) x10^3/uL Sodium (135-145) mmol/L Potassium (3.5-5.1) mmol/L Chloride (98-107) mmol/L Carbon Dioxide (22-30) mmol/L Anion Gap (5-15) MEQ/L BUN (9-20) mg/dL Creatinine (0.66-1.25) mg/dL Estimated GFR ML/MIN Glucose (74-106) mg/dL POC Glucometer 162 H 203 H (74 to 106) mg/dL Calcium (8.4-10.2) mg/dL Total Bilirubin (0.2-1.3) mg/dL AST (17-59) U/L ALT (0-50) U/L Alkaline Phosphatase (38-126) U/L C-Reactive Prot, Quant 3 (0-10) mg/L Serum Total Protein (6.3-8.2) g/dL Albumin (3.5-5.0) g/dL 12/20/23 12/20/23 12/20/23 Range/Units 04:21 04:21 07:14 WBC 7.1 (4.23-9.07) x10^3/uL RBC 3.83 L (4.63-6.08) x10^6/uL Hgb 11.7 L (13.7-17.5) g/dL Hct 36.1 L (40.1-51.0) % MCV 94.3 H (79.0-92.2) fL MCH 30.5 (25.7-32.2) pg MCHC 32.4 (32.3-36.5) g/dL RDW 12.9 (11.6-14.4) % Plt Count 242 (163-337) x10^3/uL MPV 9.6 (9.4-12.4) fL Gran % 60.1 (34.0-67.9) % Immature Gran % (Auto) 0.3 (0.001-0.429) % Nucleat RBC Rel Count 0.0 (0.00-0.2) % Eos # (Auto) 0.45 (0.04-0.54) x10^3/uL Immature Gran # (Auto) 0.02 (0.001-0.031) x10^3u/L Absolute Lymphs (auto) 1.86 (1.32-3.57) x10^3/uL Absolute Monos (auto) 0.46 (0.30-0.82) x10^3/uL Absolute Nucleated RBC 0.00 (0.00-0.012) x10^3u/L Lymphocytes % 26.2 (21.8-53.1) % Monocytes % 6.5 (5.3-12.2) % Eosinophils % 6.3 (0.8-7.0) % Basophils % 0.6 (0.2-1.2) % Absolute Granulocytes 4.28 (1.78-5.38) x10^3/uL Basophils # 0.04 (0.01-0.08) x10^3/uL Sodium 136 (135-145) mmol/L Potassium 4.0 (3.5-5.1) mmol/L Chloride 105 (98-107) mmol/L Carbon Dioxide 23 (22-30) mmol/L Anion Gap 12.2 (5-15) MEQ/L BUN 22 H (9-20) mg/dL Creatinine 1.41 H (0.66-1.25) mg/dL Estimated GFR 48.8 ML/MIN Glucose 148 H (74-106) mg/dL POC Glucometer 152 H (74 to 106) mg/dL Calcium 8.3 L (8.4-10.2) mg/dL Total Bilirubin 0.80 (0.2-1.3) mg/dL AST 26 (17-59) U/L ALT 15 (0-50) U/L Alkaline Phosphatase 121 (38-126) U/L C-Reactive Prot, Quant (0-10) mg/L Serum Total Protein 6.2 L (6.3-8.2) g/dL Albumin 3.5 (3.5-5.0) g/dL 12/20/23 Range/Units 11:26 WBC (4.23-9.07) x10^3/uL RBC (4.63-6.08) x10^6/uL Hgb (13.7-17.5) g/dL Hct (40.1-51.0) % MCV (79.0-92.2) fL MCH (25.7-32.2) pg MCHC (32.3-36.5) g/dL RDW (11.6-14.4) % Plt Count (163-337) x10^3/uL MPV (9.4-12.4) fL Gran % (34.0-67.9) % Immature Gran % (Auto) (0.001-0.429) % Nucleat RBC Rel Count (0.00-0.2) % Eos # (Auto) (0.04-0.54) x10^3/uL Immature Gran # (Auto) (0.001-0.031) x10^3u/L Absolute Lymphs (auto) (1.32-3.57) x10^3/uL Absolute Monos (auto) (0.30-0.82) x10^3/uL Absolute Nucleated RBC (0.00-0.012) x10^3u/L Lymphocytes % (21.8-53.1) % Monocytes % (5.3-12.2) % Eosinophils % (0.8-7.0) % Basophils % (0.2-1.2) % Absolute Granulocytes (1.78-5.38) x10^3/uL Basophils # (0.01-0.08) x10^3/uL Sodium (135-145) mmol/L Potassium (3.5-5.1) mmol/L Chloride (98-107) mmol/L Carbon Dioxide (22-30) mmol/L Anion Gap (5-15) MEQ/L BUN (9-20) mg/dL Creatinine (0.66-1.25) mg/dL Estimated GFR ML/MIN Glucose (74-106) mg/dL POC Glucometer 223 H (74 to 106) mg/dL Calcium (8.4-10.2) mg/dL Total Bilirubin (0.2-1.3) mg/dL AST (17-59) U/L ALT (0-50) U/L Alkaline Phosphatase (38-126) U/L C-Reactive Prot, Quant (0-10) mg/L Serum Total Protein (6.3-8.2) g/dL Albumin (3.5-5.0) g/dL Radiology Exams: Radiology Procedures Category Date Time Status CHEST 1 VIEW (PORTABLE) Stat Exams 12/18/23 19:44 Completed CHEST 1 VIEW (PORTABLE) Stat Exams 12/18/23 19:53 Completed SHOULDER Routine Exams 12/18/23 14:26 Completed Multi-Disciplinary Progress Notes: Multi-Disciplinary Progress Notes 12/19/23 15:52 Case Management Note by Berkley Sands REPORTS THE SOONEST THEY CAN START PATIENT ON FOR HOME CARE WITH INFUSIONS IS SATURDAY- DR. CORDOVA NOTIFIED Initialized on 12/19/23 15:52 - END OF NOTE 12/19/23 15:46 Case Management Note by Berkley Sands S/W DR. CORDOVA REGARDING HOME INFUSIONS- NEW ORDERS RECEIVED FOR ROCEPHIN AND VANC X 4 WEEKS AT HOME- ORDERS SENT TO [facility] WITH INFO ON PICC LINE Initialized on 12/19/23 15:46 - END OF NOTE 12/19/23 12:30 Case Management Note by Renetta Islas S/W SIMÓN AFTER FAXING INFO TO [facility] TO CHECK COVERAGE FOR IV ANTIBIOTICS. SHE STATED PATIENT HAD PART D COVERAGE AND WAS OK FOR MEDS. WILL NEED TO SEND RX WHEN ORDERED. REFERRAL FAXED TO [facility]. THEY WILL NEED NOTIFIED AT TIME OF DC AT [phone]. THEY WILL NEED FAXED THE THE DC INSTRUCTIONS, DC MED LIST AND DC SUMMARY (IF AVAILABLE) TO [phone] Initialized on 12/19/23 12:30 - END OF NOTE
--- NOTE | 2023-12-23 08:52 | OP ---
SURGERY DATE/TIME: 12/18/23 8913 - 2273 PREOPERATIVE DIAGNOSIS: Septic right shoulder. POSTOPERATIVE DIAGNOSIS: Septic right shoulder. PROCEDURE: Incision and drainage of right shoulder with revision of components. SURGEON: Damian Hays MD. INDICATIONS: The patient is an 83-year-old male who underwent right shoulder replacement surgery 11/26. On 11/28, he was taken back to the operating room for repair of a greater tuberosity fracture. He presents to the office with complaints of wound drainage. They indicate that he had a large swollen area along the top of the incision that when he rubbed over it, a large volume of drainage was expressed from the incision line and it has continued to drain since that time. He was seen in the office and noted to have no significant erythema but did have steady serous drainage emanating from the lower end of the incision. Because of this and the fact that he is 2 weeks out from surgery, we recommended incision and drainage of the wounds and joint area. Consent was obtained. DESCRIPTION OF PROCEDURE AND FINDINGS: Patient was seen preoperatively and his operative limb was identified, confirmed, and initialed. He did not receive preoperative antibiotics so that we could obtain untainted fluid samples. He did not receive a shoulder block but was taken back to the operating room and placed under general anesthesia in the beach chair position. Sterile prep and drape of the incision was carried out. We draped out the shoulder. We re-incised his previous incision. A small volume of drainage initially escaped. When we got through the skin and subcutaneous layer, we noted that the muscle layer was intact. The components were not visible. We palpated the coracoid and identified the deltopectoral interval. Once we entered that interval and began to spread the muscle, a large volume of serous-appearing drainage escaped from the wound. We harvested some of this fluid in a syringe and labeled this for transport to the lab for testing to include cultures, Gram stain, and cell count. Once this interval was opened, the components were visible and were in good position and stable. We dislocated the shoulder and removed the polyethylene component from the humeral stem. We then performed pulsatile lavage. We used 3 L of normal saline. When this was completed, we performed pulsatile lavage with 1000 mL of Bactisure. When that was completed, we pulse lavaged with another 1000 mL of saline containing 1 g of vancomycin. At that point, a size 10-Wolof Hemovac drain was placed deep in the wound and brought out through the deltoid muscle. This was cut to appropriate length, and the end of the drain with the perforations was left deep in the shoulder recess below the components. We then reapproximated the deltopectoral interval with 0 Vicryl, then closed the subcutaneous tissue with 2-0 Vicryl and the skin layer was closed with elmo. We applied the drain to suction and then applied a sterile dressing. The patient was taken to recovery room in stable condition.
== END 2023-12-20 16:09 | disposition home or self-care (01) ==
LOC: SDC 08:16 → MED SURG 09:50
PROVIDERS: ADMIT Internal Medicine; ATTEND Orthopaedic Surgery
DX: M00.9 Pyogenic arthritis, unspecified (principal); E78.5 Hyperlipidemia, unspecified; I12.9 Hypertensive chronic kidney disease with stage 1 through stage 4 chronic kidney disease, or unspecified chronic kidney disease; E11.22 Type 2 diabetes mellitus with diabetic chronic kidney disease; N18.9 Chronic kidney disease, unspecified; Z96.611 Presence of right artificial shoulder joint
CPT/HCPCS: 00400; 01638; 10180; 23474; 36415; 36573; 71045; 73030; 80048; 80053; 82947; 83036; 85025; 85652; 86140; 87070; 87205; 93005; 97161; 99100; A6260; C1776; G0378; Q3014; J0696; J2250; J2371; J3010; A9270-GY; J3370

== ENCOUNTER 2025-02-10 06:05 | Day surgery (SDC) | payer MEDICARE ==
[2025-02-10] MEDS ORDERED: VANCOCIN INJECTION IV ONE (06:27)
[2025-02-10] MEDS: CLINDAMYCIN-D5W 900 MG/50 ML*** 900 MG/50 ML BAG IV ONE (06:44)
[2025-02-10] MEDS: TRANEXAMIC 1,000 MG/100ML-NACL 1,000 MG/100 ML PIGGYBACK IV ONE (06:44)
[2025-02-10] MEDS: Decadron 4 MG PO ONE (06:47)
[2025-02-10] MEDS: celeBREX 100 MG PO ONE (06:47)
[2025-02-10] MEDS: TYLENOL EXTRA STRENGTH 500 MG PO ONE (06:47)
[2025-02-10 06:50] LABS: Calcium 8.8 mg/dL (8.4-10.2); Carbon Dioxide 27.0 mmol/L (22-30); Creatinine 1 1.47 mg/dL (0.66-1.25); EST GLOMERULAR FILTRATION RATE 46.2 ML/MIN; Glucose 136.0 mg/dL (74-106); Potassium 4.1 mmol/L (3.5-5.1)
[2025-02-10] MEDS ORDERED: ROCURONIUM BROMIDE IV ONE (07:40)
[2025-02-10] MEDS ORDERED: Versed 2 MG/2 ML Injection IV ONE (07:40)
[2025-02-10] MEDS ORDERED: SUBLIMAZE 100 MCG/2 ML IV ONE ×2 (07:40→08:54)
[2025-02-10] MEDS ORDERED: propofoL IV ONE (07:40)
[2025-02-10] MEDS ORDERED: MARCAINE 0.25% PF/ EPI 1:200,000 IJ ONE (07:43)
[2025-02-10] MEDS ORDERED: Marcaine 0.5%/Epinephrine 10 ML IJ ONE (08:52)
[2025-02-10] MEDS ORDERED: Xylocaine-Mpf 2% 5 Ml Vial IJ ONE (08:52)
[2025-02-10] MEDS ORDERED: BRIDION 200MG/2ML IV ONE (09:46)
[2025-02-10] MEDS ORDERED: SUBLIMAZE 100 MCG/2 ML ONE (10:32)
[2025-02-10] MEDS ORDERED: DILAUDID 0.5 MG/0.5 ML SYRINGE ONE ×2 (10:33→10:56)
--- NOTE | 2025-02-10 11:38 | XRAY ---
CLINICAL HISTORY: S/P SURGERY COMPARISON: None. TECHNIQUE: Anteroposterior and lateral views of the left knee were obtained. FINDINGS: Osseous structures: There is evidence of knee arthroplasty hardware, including femoral and tibial components, with no acute complications identified. A radiopaque marker is also noted, which suggests the presence of prosthetic material at the patellar articular surface. Soft tissues: Postoperative changes are characterized by periarticular and distal thigh subcutaneous emphysema, as well as soft tissue edema. Additional findings: There are early vascular calcifications and a few heterotopic calcifications in the posterior region. IMPRESSION: 1. The patient is status post total knee arthroplasty with femoral, tibial, and patellar components, with no acute complications observed. 2. Postoperative changes are characterized by periarticular and distal thigh subcutaneous emphysema, as well as soft tissue edema. DISCLAIMER:A subtle bone abnormality or fracture may not be readily apparent on x-rays, thus clinical correlation and further imaging including follow up CT, MRI, or follow up x-rays are advised as needed. Electronically Signed by: Yash Espinal MD. (02/10/2025 11:36:22 EDT)
[2025-02-10] MEDS ORDERED: ZOFRAN ODT 4 MG PO PRN (12:02)
[2025-02-10] MEDS ORDERED: Ecotrin 325 MG ONE (13:38)
[2025-02-10] MEDS ORDERED: NORCO 10-325 MG ONE (13:39)
[2025-02-10] MEDS ORDERED: Zestril 5 MG ONE (13:39)
[2025-02-10] MEDS ORDERED: Zetia 10 MG ONE (13:39)
[2025-02-10] MEDS ORDERED: Flomax 0.4 MG ONE (13:39)
[2025-02-10] MEDS ORDERED: ZOCOR 20MG ONE (13:40)
[2025-02-10] MEDS ORDERED: Docusate Sodium 100 MG ONE ×2 (13:40→21:39)
[2025-02-10] MEDS: NORCO 10-325 MG PO PRN (13:43)
[2025-02-10] MEDS: Flomax 0.4 MG PO SCH (13:43)
[2025-02-10] MEDS: Zetia 10 MG PO SCH (13:44)
[2025-02-10] MEDS: ZOCOR 20MG PO SCH (13:44)
[2025-02-10] MEDS: Zestril 5 MG PO SCH (13:44)
[2025-02-10] MEDS: Ecotrin 325 MG PO SCH (13:44)
[2025-02-10] MEDS: Docusate Sodium 100 MG PO SCH (13:44)
[2025-02-10] MEDS: Glucotrol Xl 2.5 MG PO SCH (13:45)
[2025-02-10] MEDS: Proscar 5 MG PO SCH (13:52)
[2025-02-10] MEDS ORDERED: CLINDAMYCIN-D5W 900 MG/50 ML*** 900 MG/50 ML BAG IV ONE ×2 (15:50→21:40)
[2025-02-10] MEDS: CLINDAMYCIN-D5W 900 MG/50 ML*** 900 MG/50 ML BAG IV SCH (15:54)
[2025-02-10] MEDS ORDERED: NORCO 7.5/325 MG TAB ONE (21:38)
[2025-02-10] MEDS: NORCO 7.5/325 MG TAB PO PRN (21:43)
[2025-02-11] MEDS ORDERED: NORCO 10-325 MG ONE (02:29)
[2025-02-11] MEDS ORDERED: Hydromorphone 1 mg/ml Injection ONE (04:04)
[2025-02-11] MEDS: Hydromorphone 1 mg/ml Injection IV PRN (04:07)
[2025-02-11 04:21] VITALS: BP 173/75; PULSE 68; RESP 20; TEMP 98.4; O2SAT 97
[2025-02-11 05:55] LABS: Hematocrit 34.4 % (40.1-51.0); Hemoglobin 11.4 g/dL (13.7-17.5); Mean Corpuscular Hemoglobin 31.6 pg (25.7-32.2); Mean Corpuscular Hgb Concent. 33.1 g/dL (32.3-36.5); Platelet Count 161 x10^3/uL (163-337); Red Blood Count 3.61 x10^6/uL (4.63-6.08); White Blood Count 11.9 x10^3/uL (4.23-9.07)
[2025-02-11] MEDS ORDERED: NORCO 7.5/325 MG TAB ONE (06:58)
--- NOTE | 2025-02-11 14:08 | OP ---
SURGERY DATE/TIME: 02/10/2025 [id number] PREOPERATIVE DIAGNOSIS: Severe advanced osteoarthritis, left knee. POSTOPERATIVE DIAGNOSIS: Severe advanced osteoarthritis, left knee. PROCEDURE: Left total knee replacement arthroplasty utilizing the [employer] instrumentation, a size 10 narrow femoral component press-fit, size F tibial component cemented with a 12 mm polyethylene bearing tray, a 25 x 8 mm single peg poly patella cemented. SURGEON: Cornell Negron II, DO ANESTHESIA: General with block for postoperative pain control. DESCRIPTION OF PROCEDURE AND FINDINGS: The patient was identified and informed consent was obtained. The patient was taken to the operative suite where the block was administered. Following this, general anesthetic was administered and once an appropriate level of anesthesia had been obtained the tourniquet was placed high on the left thigh, the left lower extremity was then prepped and draped in usual sterile fashion. A standard time-out was taken. The foot was then placed into the foot holding boot. The leg was then exsanguinated and the tourniquet was elevated to 350 mmHg. Knee was placed into the knee hart and a standard midline incision was accomplished with the knee in a slightly flexed position. Skin was incised. Dissection was carried out through the subcutaneous tissue. The standard medial parapatellar incision was accomplished with a fresh #10 blade. On entering the joint, a copious amount of grade 1 synovial fluid was encountered. The patient was noted to have significant degenerative changes on both the medial and lateral femoral condyles and tibial plateau as well as the patella. At this point, portions of the infrapatellar fat pad, the medial and lateral menisci, and anterior cruciate ligament were excised for visualization. Z retractors were positioned medially and laterally, and at this point the Signature series femoral guide was applied and held with its pins. Following this, the distal cutting block was applied. Distal femoral cut was then accomplished. Guide was removed and the 4-in-1 cutting block was then applied through the previously made drill holes. The anterior, posterior, and chamfer cuts were then accomplished. Wafers of bone were removed. At this point, then a Cobra retractor was placed posteriorly and the remaining portions of the medial and lateral menisci were excised. A couple of small loose bodies were also removed. At this point, the tibial aiming guide was placed. The drill holes were accomplished and the proximal tibial cutting block was then applied and the proximal wafer of tibia was resected with an oscillating saw. The wafer of bone was removed and at this point the trial tibial tray was then applied and held in the appropriate rotation with its pins. Trial femoral component was then applied. The peg holes were made in the femur for the permanent component. The trial tibial poly was then placed and it was deemed that a 12 mm poly would give excellent soft tissue balance in full extension through flexion to greater than 135 degrees. At this point, our attention was now turned to the patella where the patella was then measured and milled. An 8 x 25 thick trial button restored the preresection height. The patient did have some lateral tracking and a limited lateral release was then performed. Excellent tracking was now noted. Trial instrumentation was then removed. The cruciate stem was cut prior to removal of the trial tibial component and at this point the joint was copiously irrigated with the pulsed assistant professor of psychology while the cement was being vacuum mixed. Tibial component was then cemented into position. The femoral component was then press-fit into position. The trial tibial polyethylene tray was then inserted. The knee was held in extension during the curing process. It should be noted that all excess cement was removed during the curing process. At this point, the patellar button was then cemented into place and held with its clamp. Once the cement had fully cured and all excess cement had been removed, again trial reduction with a 12 mm poly showed this to give excellent soft tissue balance in all planes of motion. At this point, the trial tibial tray was removed. The joint was copiously irrigated with the pulsed assistant professor of psychology. The 12 mm tray was inserted and snapped into position. The wound was then closed with #2 Stratafix, 2-0 Monocryl, and 3-0 subcuticular Stratafix augmented with Dermabond with an Aquacel dressing applied. The patient was then transferred to the bed and taken to the recovery room in satisfactory condition having tolerated the procedure well.
== END 2025-02-11 11:18 | disposition home or self-care (01) ==
LOC: SDC 06:05 → MED SURG 11:25 → SDC 02-11 11:18
PROVIDERS: ATTEND Orthopaedic Surgery
DX: M17.12 Unilateral primary osteoarthritis, left knee (principal); I10 Essential (primary) hypertension; E11.9 Type 2 diabetes mellitus without complications
CPT/HCPCS: 27447; 36415; 73560; 80048; 82947; 85027; 97110; 97161; 97530; C1713; C1776

== ENCOUNTER 2025-02-15 19:17 | Emergency (ER) | payer MEDICARE ==
--- NOTE | 2025-02-15 20:50 | ERPHSYRPT ---
- History of Present Illness Time Seen by Provider: 02/15/25 20:35 Source: patient Exam Limitations: no limitations Patient Subjective Stated Complaint: c/o left lower extremity swelling Triage Nursing Assessment: patient brought to ED by brother with c/o left lower extremity swelling post-op knee replacement. patient has surgery by Dr. Negron on the . patient stated that the swelling started after the surgery and has gotten worse. patient has 2+ pitting edema in left lower leg. skin w/n/d, gaited in with a walker, patient doesn't appear to be in any distress at this time. Physician History: Patient is an 84-year-old male past medical history significant for 2 diabetes, former smoker currently postop day 5 left total knee replacement by Dr. Negron presents to our ED for evaluation of pain and swelling to the left lower extremity. Patient states the pain and swelling have gotten progressively worse over the day. No trauma no fever no falls. The postoperative dressing is still intact. No bleeding. Patient has no systemic manifestations of illness. Patient's brother was at the bedside. They voiced no other complaints or concerns at this time. Portions of this note were created with voice recognition technology. There may be grammatical, spelling, punctuation or sound alike errors Timing/Duration: today Severity: moderate Modifying Factors: Improves With: nothing Associated Symptoms: denies symptoms Allergies/Adverse Reactions: morphine Allergy (Unknown, Verified 02/15/25 19:27) amoxicillin Allergy (Verified 02/15/25 19:27) Rash adhesive tape Adverse Reaction (Unknown, Verified 02/15/25 19:27) Home Medications: Ezetimibe 10 mg [Zetia 10 MG] 10 mg PO DAILY 09/17/23 [History] Finasteride 5 mg [Proscar 5 MG] 5 mg PO DAILY 09/17/23 [History] Lisinopril 5 mg [Zestril 5 MG] 5 mg PO DAILY 09/17/23 [History] Pravastatin Sodium 40 mg PO DAILY 09/17/23 [History] Tamsulosin HCl 0.4 mg [Flomax 0.4 MG] 1 tab PO DAILY 09/17/23 [History] glipiZIDE [Glipizide ER] 5 mg PO BID 09/17/23 [History] Hx Tetanus, Diphtheria Vaccination/Date Given: Yes Hx Influenza Vaccination/Date Given: Yes Hx Pneumococcal Vaccination/Date Given: Yes Travel Risk - International Travel Have you traveled outside of the country in past 3 weeks: No - Emerging Infectious Disease Are you exhibiting symptoms associated with any current EIDs: No - Review of Systems All Other Systems: Reviewed and Negative - Past Medical History Pertinent Past Medical History: Yes Neurological History: No Pertinent History ENT History: Cataracts Cardiac History: No Pertinent History Respiratory History: No Pertinent History Endocrine Medical History: Diabetes Type II Musculoskeletal History: Fractures, Osteoarthritis GI Medical History: GERD History: No Pertinent History Male Reproductive Disorders: Prostate Problems Other Medical History: PSH: APPENDIX AND GALLBLADDER REMOVED, CERVICAL FUSION (POOR EXPERIENCE WITH CERVICAL NECK MANIPULATION WITH A CHIROPRACTOR). - Past Surgical History Past Surgical History: Yes Neuro Surgical History: No Pertinent History Cardiac: No Pertinent History Respiratory: No Pertinent History Gastrointestinal: Appendectomy, Cholecystectomy Genitourinary: No Pertinent History Musculoskeletal: Joint Replacement, Other Male Surgical History: No Pertinent History Other Surgical History: right shoulder replacement. repair of right shoulder. PSH: APPENDIX AND GALLBLADDER REMOVED, CERVICAL FUSION (POOR EXPERIENCE WITH CERVICAL NECK MANIPULATION WITH A CHIROPRACTOR). left knee replacement - Social History Smoking Status: Former smoker Exposure to second hand smoke: No Drug Use: none - Social Determinants of Health Will the patient participate in the screening: Yes Do you worry about a steady place to live?: No Do you have any problems with any of the following?: No known problems In the past 12 months,have you had to go without utilities?: No Transportation Issues: No Has anyone in your support network made you feel unsafe?: No Have you or anyone in your house had to go w/o enough food: No - Nursing Vital Signs Nursing Vital Signs: Initial Vital Signs Pulse Rate 69 02/15/25 19:27 Respiratory Rate 18 02/15/25 19:27 Blood Pressure 155/73 02/15/25 19:27 O2 Sat by Pulse Oximetry 98 02/15/25 19:27 Pain Scale Pain Intensity 0 - Physical Exam General Appearance: no apparent distress, alert Eye Exam: eyes nml inspection Ears, Nose, Throat Exam: normal ENT inspection Neck Exam: normal inspection, full range of motion Respiratory Exam: normal breath sounds, lungs clear, airway intact, No respiratory distress Cardiovascular Exam: regular rate/rhythm, normal heart sounds, normal peripheral pulses Gastrointestinal/Abdomen Exam: soft, normal bowel sounds, No tenderness, No mass Back Exam: normal inspection, normal range of motion, No CVA tenderness, No vertebral tenderness Extremity Exam: normal inspection, normal range of motion, pelvis stable, other (Palpable pulse right lower extremity. Dopplerable pulse left lower extremity. Cap refill less than 2 seconds. Compartments are soft.) Neurologic Exam: alert, oriented x 3, cooperative, normal mood/affect, nml cerebellar function, nml station & gait, sensation nml, No motor deficits Skin Exam: normal color, warm, dry, No rash Lymphatic Exam: No adenopathy SpO2 Interpretation: normal SpO2: 98 O2 Delivery: Room Air - Course Nursing assessment & vital signs reviewed: Yes - Radiology Ultrasound Exam Venous Lower Extremity Ultrasound: tele radiology report (Per enterprise sales person ultrasound negative DVT study left lower extremity) Ordered Tests: Active Orders 24 hr Category Date Time Status Splint STAT Care 02/15/25 23:36 Active VENOUS UNILAT/LIMITED EXTREMIT [US] Stat Exams 02/15/25 20:44 Taken CBC Stat Lab 02/15/25 23:50 Completed Medication Summary Discontinued Medications Generic Name Dose Route Start Last Admin Trade Name Ashwinq PRN Reason Stop Dose Admin Hydrocodone Bitart/Acetaminophen 1 tablet 02/15/25 20:45 02/15/25 20:52 Hydrocodone/Acetamin 10-325 Mg Tablet PO 02/15/25 20:46 1 tablet ONCE STA Administration Hydrocodone Bitart/Acetaminophen Confirm 02/15/25 20:51 Hydrocodone/Acetamin 10-325 Mg Tablet Administered 02/15/25 20:52 Dose 1 tablet .ROUTE .STK-MED ONE Aspirin 324 mg 02/15/25 23:23 02/15/25 23:28 Aspirin 81 Mg Tab.Chew PO 02/15/25 23:24 324 mg STAT ONE Administration Aspirin Confirm 02/15/25 23:28 Aspirin 81 Mg Tab.Chew Administered 02/15/25 23:29 Dose 324 mg .ROUTE .STK-MED ONE Lab/Rad Data: Laboratory Result Diagrams 02/15/25 23:50 Laboratory Results 02/15/25 Range/Units 23:50 WBC 10.9 H (4.23-9.07) x10^3/uL RBC 4.02 L (4.63-6.08) x10^6/uL Hgb 12.6 L (13.7-17.5) g/dL Hct 39.0 L (40.1-51.0) % MCV 97.0 H (79.0-92.2) fL MCH 31.3 (25.7-32.2) pg MCHC 32.3 (32.3-36.5) g/dL RDW 13.0 (11.6-14.4) % Plt Count 219 (163-337) x10^3/uL MPV 9.1 L (9.4-12.4) fL - Progress Progress: improved Progress Note: Patient is an 84-year-old male past medical history significant for 2 diabetes, former smoker currently postop day 5 left total knee replacement by Dr. Negron presents to our ED for evaluation of pain and swelling to the left lower extremity. Physical exam reveals swelling of the left lower extremity. Positive Homans' sign left lower extremity. There is a dopplerable pulse. Cap refill less than 2 seconds. Compartments are soft. Ultrasound left lower extremity negative for DVT. We consulted with on-call orthopedic surgery. Dr. Bhatia presented to our ED and evaluated the patient. He requested a dose of aspirin and a CBC. CBC appears to be within range for our patient. Aspirin administered. Patient will follow-up with Dr. Bhatia in the morning for further evaluation. Patient reassessed he is resting comfortably. Patient received 7.5 [place] per his request. Patient states he is ready for discharge. No indication for further workup at this time. Patient's is at the bedside. They voiced no other complaints or concerns at this time. Portions of this note were created with voice recognition technology. There may be grammatical, spelling, punctuation or sound alike errors History obtained patient and his brother who was at the bedside upon initial presentation. Differential diagnosis includes trauma, benign postsurgical swelling, DVT Complexity of problem addressed is moderate acute complicated. No critical care time. Complex of data reviewed and analyzed is extensive. Test ordered test reviewed results analyzed and correlated clinically with history and physical exam. Management discussed with orthopedic surgery on-call. Risk of complication and or risk of morbidity/mortality of patient management is low. Vital stable. Time spent to discharge patient is approximately 10 minutes. Plan of care established for shared decision making. No social determinants of health present to impede follow-up. Portions of this note were created with voice recognition technology. There may be grammatical, spelling, punctuation or sound alike errors 02/16/25 00:22 Counseled pt/family regarding: diagnosis, need for follow-up, rad results - Departure Departure Disposition: Home Clinical Impression: Leg pain, Leg edema, left Condition: Stable Critical Care Time: No Referrals: DENNIS MILNER [Primary Care Provider, UNKNOWN] - Follow up/PCP as directed EMILY BHATIA MD [ACTIVE STAFF, ORTHOPEDICS] - Follow up/PCP as directed Additional Instructions: Discharge/Care Plan LILLY MARIE was seen on 02/16/25 in the Emergency Room. The patient was counseled regarding Diagnosis,Lab results, Imaging studies, need for follow up and when to return to the Emergency Room. Prescriptions given: Discharge Note I have spoken with the patient and/or caregivers. I have explained the patient's condition, diagnosis and treatment plan based on the information available to me at this time. I have answered the patient's and/or caregiver's questions and addressed any concerns. The patient and/or caregivers have as good understanding of the patient's diagnosis, condition and treatment plan as can be expected at this point. The vital signs have been stable. The patient's condition is stable and appropriate for discharge from the emergency department. The patient will pursue further outpatient evaluation with the primary care physician or other designated or consulting physician as outlined in the discharge instructions. The patient and/or caregivers are agreeable to this plan of care and follow-up instructions have been explained in detail. The patient and/or caregivers have received these instruction. The patient/and or caregivers are aware that any significant change in condition or worsening of symptoms should prompt an immediate return to this or the closest emergency department or call 911.
[2025-02-15] MEDS ORDERED: NORCO 10-325 MG ONE (20:51)
[2025-02-15] MEDS: NORCO 10-325 MG PO STA (20:52)
[2025-02-15 23:08] VITALS: RESP 18
[2025-02-15] MEDS ORDERED: BABY ASPIRIN 81 MG CHEW ONE (23:28)
[2025-02-15] MEDS: BABY ASPIRIN 81 MG CHEW PO ONE (23:28)
[2025-02-15 23:52] LABS: Hematocrit 39.0 % (40.1-51.0); Hemoglobin 12.6 g/dL (13.7-17.5); Mean Corpuscular Hemoglobin 31.3 pg (25.7-32.2); Mean Corpuscular Hgb Concent. 32.3 g/dL (32.3-36.5); Platelet Count 219 x10^3/uL (163-337); Red Blood Count 4.02 x10^6/uL (4.63-6.08); White Blood Count 10.9 x10^3/uL (4.23-9.07)
[2025-02-16 00:13] VITALS: O2SAT 98
[2025-02-16 00:23] VITALS: BP 134/66; PULSE 67
--- NOTE | 2025-02-16 08:43 | XRAY ---
Indication: Pain. Status post knee surgery. Two-dimensional sonogram and color Doppler imaging major venous vessels left leg performed. Comparison: None No thrombus seen in the examined deep venous vessels left leg including greater saphenous vein. Veins demonstrate normal compressibility. Venous waveforms are normal with and without augmentation. Impression: Left leg negative for DVT. Comment: Preliminary report was given.
--- NOTE | 2025-02-17 09:36 | CONS ---
DATE OF CONSULTATION: 02/15/2025 REASON FOR CONSULTATION: Left lower extremity swelling, status-post left total knee arthroplasty. HISTORY OF PRESENT ILLNESS: Mr. Jiménez is an 84-year-old male who underwent a left total knee arthroplasty by Dr. Cornell Negron on 02/10/2025. Following the surgery, the patient began to develop left lower extremity swelling. The swelling continued to increase to the point where the patient presented to the [facility] this evening for evaluation. The patient underwent evaluation, including an ultrasound, which was negative for DVT. Orthopaedic Surgery was consulted for evaluation of the patient. The patient currently reports mild pain in the left lower extremity. The patient states the swelling has started to improve since arrival to the emergency department. The patient denies any signs or symptoms of infection. No other problems are reported. PAST MEDICAL HISTORY: 1) Diabetes mellitus. 2) Hypertension. 3) Hypercholesterolemia. PAST SURGICAL HISTORY: 1) Left total knee arthroplasty. 2) Right shoulder surgery. MEDICATIONS: 1. Ezetimibe. 2. Finasteride. 3. Glipizide ER. 4. Lisinopril. 5. Pravastatin. ALLERGIES: 1. Cephalexin 2. Morphine FAMILY HISTORY: Noncontributory. SOCIAL HISTORY: The patient denies any tobacco, alcohol, or illicit drug use. REVIEW OF SYSTEMS: All systems were reviewed and are negative, except as mentioned in the HPI. PHYSICAL EXAMINATION: On examination, the patient is alert and oriented, in no acute distress. The patient interacts appropriately during the examination. Examination of the patient's gait reveals the patient to be lying on a hospital stretcher. Examination of the left lower extremity reveals a surgical dressing in place over the anterior knee with minimal drainage. There is minimal reactive erythema around the dressing. There is mild bruising about the knee. There is moderate swelling throughout the entire left lower extremity; the patient's compartments of the thigh and knee are soft without tenderness to palpation. The patient is able to move his foot and ankle without difficulty. The patient has a dopplerable pedal pulse; the patient's capillary refill is less than 2 seconds. The patient's distal sensation is grossly intact to light touch. IMAGING STUDIES: A Doppler ultrasound of the left lower extremity dated 02/15/[address] [facility] was reviewed indicating no evidence of DVT. IMPRESSION: Left lower extremity swelling, status-post left total knee arthroplasty. PLAN: Mr. Jiménez has swelling in his left lower extremity following a recent total knee arthroplasty. The patient has not had any compressive dressings on the left lower extremity. The swelling is mild to moderate at this point. The recommendation at this time is for a compressive dressing of the left lower extremity; this was applied in the emergency department. In addition, the patient will be started on aspirin twice daily for DVT prophylaxis. The patient will continue with oral pain medications as needed. The patient will be discharged home at this time with plans for follow-up in the [facility] tomorrow afternoon for repeat evaluation and a dressing change. The patient does have a slight elevation of his WBC, but there does not appear to be an infectious process at this time. The patient's WBC will be monitored over time. The patient has been instructed to call if there are any problems, questions, or concerns.
== END 2025-02-16 00:25 | disposition home or self-care (01) ==
LOC: ED 19:17
DX: M79.605 Pain in left leg (principal); R60.0 Localized edema; E11.9 Type 2 diabetes mellitus without complications; Z79.84 Long term (current) use of oral hypoglycemic drugs; Z79.899 Other long term (current) drug therapy

== ENCOUNTER 2025-03-15 11:20 | Emergency (ER) | payer MEDICARE ==
[2025-03-15 11:35] VITALS: O2SAT 97
[2025-03-15 11:39] VITALS: TEMP 98.8
--- NOTE | 2025-03-15 12:19 | XRAY ---
Indication: Constipation. Comparison: None KUB nonacute nonobstructed with little to no fecal debris in descending colon. Solid organs unremarkable. Osseous structures intact with osteopenia and moderate multilevel degenerative spondylosis. Incidental cholecystectomy clips and small left lung base calcified granuloma.
[2025-03-15 12:23] VITALS: BP 148/70; PULSE 69; RESP 15
--- NOTE | 2025-03-15 12:39 | ERPHSYRPT ---
- History of Present Illness Patient Subjective Stated Complaint: c/o constipation Triage Nursing Assessment: patient brought to ED by with c/o constipation. patient states he has been having bowel movements but not a lot is coming out. bowel sounds present in all 4 quads, rates pain in bilat. lower quads a 01/03. denies N/V, has been having bowel issues since his left knee surgery. skin w/n/d, afebrile, gait steady, doesn't appear to be in any distress at this time. Physician History: Constipated, patient has been having small hard bowel movements, states that he has not had a regular bowel movement couple of weeks, he was on pain medications as he had a knee replacement he is not on any pain medication presently he had no associated nausea or vomiting Timing/Duration: week(s) Quality: cramping Abdominal Pain Onset Location: generalized abdomen Severity of Pain-Max: mild Severity of Pain-Current: mild Modifying Factors: Improves With: nothing Associated Symptoms: denies symptoms Allergies/Adverse Reactions: morphine Allergy (Unknown, Verified 03/15/25 11:26) amoxicillin Allergy (Verified 03/15/25 11:26) Rash adhesive tape Adverse Reaction (Unknown, Verified 03/15/25 11:26) Home Medications: Ezetimibe 10 mg [Zetia 10 MG] 10 mg PO DAILY 09/17/23 [History] Finasteride 5 mg [Proscar 5 MG] 5 mg PO DAILY 09/17/23 [History] Lisinopril 5 mg [Zestril 5 MG] 5 mg PO DAILY 09/17/23 [History] Pravastatin Sodium 40 mg PO DAILY 09/17/23 [History] Tamsulosin HCl 0.4 mg [Flomax 0.4 MG] 1 tab PO DAILY 09/17/23 [History] glipiZIDE [Glipizide ER] 5 mg PO BID 09/17/23 [History] Hx Tetanus, Diphtheria Vaccination/Date Given: Yes Hx Influenza Vaccination/Date Given: No Hx Pneumococcal Vaccination/Date Given: Yes Travel Risk - International Travel Have you traveled outside of the country in past 3 weeks: No - Emerging Infectious Disease Are you exhibiting symptoms associated with any current EIDs: No - Past Medical History Pertinent Past Medical History: Yes Neurological History: No Pertinent History ENT History: Cataracts Cardiac History: No Pertinent History Respiratory History: No Pertinent History Endocrine Medical History: Diabetes Type II Musculoskeletal History: Fractures, Osteoarthritis GI Medical History: GERD History: No Pertinent History Male Reproductive Disorders: Prostate Problems Other Medical History: PSH: APPENDIX AND GALLBLADDER REMOVED, CERVICAL FUSION (POOR EXPERIENCE WITH CERVICAL NECK MANIPULATION WITH A CHIROPRACTOR). - Past Surgical History Past Surgical History: Yes Neuro Surgical History: No Pertinent History Cardiac: No Pertinent History Respiratory: No Pertinent History Gastrointestinal: Appendectomy, Cholecystectomy Genitourinary: No Pertinent History Musculoskeletal: Joint Replacement, Other Male Surgical History: No Pertinent History Other Surgical History: right shoulder replacement. repair of right shoulder. PSH: APPENDIX AND GALLBLADDER REMOVED, CERVICAL FUSION (POOR EXPERIENCE WITH CERVICAL NECK MANIPULATION WITH A CHIROPRACTOR). left knee replacement. left knee replacement - Social History Smoking Status: Former smoker Exposure to second hand smoke: No Drug Use: none - Social Determinants of Health Will the patient participate in the screening: Yes Do you worry about a steady place to live?: No Do you have any problems with any of the following?: No known problems In the past 12 months,have you had to go without utilities?: No Transportation Issues: No Has anyone in your support network made you feel unsafe?: No Have you or anyone in your house had to go w/o enough food: No - Nursing Vital Signs Nursing Vital Signs: Initial Vital Signs Temperature 98.8 F 03/15/25 11:27 Pulse Rate 109 H 03/15/25 11:27 Respiratory Rate 18 03/15/25 11:27 Blood Pressure 137/66 03/15/25 11:27 O2 Sat by Pulse Oximetry 97 03/15/25 11:27 Pain Scale Pain Intensity 8 - Physical Exam General Appearance: no apparent distress, alert Eye Exam: PERRL/EOMI, eyes nml inspection Ears, Nose, Throat Exam: normal ENT inspection, pharynx normal, moist mucous membranes Neck Exam: normal inspection, non-tender, supple, full range of motion Respiratory Exam: normal breath sounds, lungs clear, No respiratory distress Cardiovascular Exam: regular rate/rhythm, normal heart sounds Gastrointestinal/Abdomen Exam: soft, tenderness (Mild diffuse), No mass, No guarding, No rebound, No splenomegaly Back Exam: normal inspection, normal range of motion, No CVA tenderness, No vertebral tenderness Extremity Exam: normal inspection, normal range of motion, pelvis stable Neurologic Exam: alert, oriented x 3, cooperative, normal mood/affect, nml cerebellar function, sensation nml, No motor deficits Skin Exam: normal color, warm, dry SpO2 Interpretation: normal SpO2: 97 - Radiology Exams Abdomen X-ray Interpretation: Interpreted by me, Other (No obstruction, mild to moderate stool burden) Ordered Tests: Active Orders 24 hr Category Date Time Status KUB Stat Exams 03/15/25 11:49 Completed - Progress Progress Note: 03/15/25 12:35 Discussed x-ray findings, recommend using the MiraLAX or milk of magnesia, follow-up to primary care doctor - Departure Departure Disposition: Home Clinical Impression: Constipation Condition: Fair Critical Care Time: No Referrals: DENNIS MILNER [Primary Care Provider, UNKNOWN] - Follow up with PCP 4 days Instructions: Constipation, Adult (DC) Additional Instructions: Consider MiraLAX 6 to 8 ounces mixed with 24 oz of fluid, Milk of magnesia 2-4 TBs, Follow-up primary care doctor
== END 2025-03-15 12:56 | disposition home or self-care (01) ==
LOC: ED 11:20
DX: K59.00 Constipation, unspecified (principal); E11.9 Type 2 diabetes mellitus without complications; Z79.84 Long term (current) use of oral hypoglycemic drugs; Z79.899 Other long term (current) drug therapy